=== PATIENT | female | born 1965 | race Caucasian/White ===

== ENCOUNTER → 2020-03-26 09:14 | Outpatient (BNVA) | payer MEDICAID, SELFPAY | PROVIDERS: PCP Nurse Practitioner Family; Referring Provider Nurse Practitioner Family; Visit Provider Physician Assistant | DX: Z76.89 Persons encountering health services in other specified circumstances (principal) ==

== ENCOUNTER 2020-05-01 08:37 | Outpatient (REF) | payer MEDICAID, SELFPAY | END 2020-05-01 08:38 | disposition home or self-care (01) | LOC: HO.LAB 08:37 | PROVIDERS: Visit Provider Internal Medicine | DX: Z20.822 Contact with and (suspected) exposure to COVID-19 (principal) | CPT/HCPCS: 36415; C9803; U0003 ==

== ENCOUNTER 2020-06-24 12:24 | Emergency (ER) | payer MEDICAID, SELFPAY ==
[2020-06-24 12:41] VITALS: BP 166/89; PULSE 64; RESP 20; TEMP 36.1; O2SAT 95; BMI 57.6
--- NOTE | 2020-06-24 13:50 | ED.WOUNDLAC ---
HPI - Wound/Laceration General Chief Complaint: Wound/Laceration Stated Complaint: LAC Time Seen by Provider: 06/24/20 13:45 Source: patient Mode of arrival: ambulatory Limitations: no limitations History of Present Illness HPI narrative: 55 y/o female presenting with small laceration to her right palm that she accidentally sustained today when she was cutting pork. She slipped with the knife and cut near the base of her right thumb. Bleeding is controlled. She has no numbness or tingling but she reports some pain. Onset (ago): hour(s) (2) Extremity Location: right: hand (palm near thenar eminence ) Place: home Patient tetanus UTD: No Context: accidental Associated symptoms: pain Treatments prior to arrival: bandage Related Data Previous Rx's Medication Instructions Recorded cephalexin 500 mg PO Q8H #15 cap 06/24/20 Allergies Allergy/AdvReac Type Severity Reaction Status Date / Time No Known Allergies Allergy Unverified 01/04/20 15:44 Review of Systems Review of Systems: Constitutional: No Fever, No Chills Musculoskeletal: No joint pain, No Myalgias Skin: + Skin Lesions, No rash Neuro: No Weakness, No Numbness Psych: + Anxiety Heme/Lymph: No Bruising PMFSH Past Medical History Attestation statement: The following information was validated with the patient. Medical History Arthritis Asthma HTN (hypertension) Social History Social History Smoked in Last 30 Days: No Use of substances other than those prescribed or required for medical reasons: No Advance Directives: No Advance Directives Information Provided: No Physical Exam Vital Signs: Vital Signs: Last Vital Signs Temp 96.9 F 06/24/20 12:41 Pulse 60 06/24/20 14:00 Resp 16 06/24/20 14:00 BP 154/78 H 06/24/20 14:00 Pulse Ox 96 06/24/20 14:00 Body Mass Index 57.6 Appearance: Alert. Oriented X3. No acute distress. HEENT: normal inspection CVS: Normal heart rate and rhythm. Pulses normal. Respiratory: No respiratory distress. Skin: Skin warm and dry. Normal skin color. Normal skin turgor. No rashes. Extremities: 2.5 cm superficial linear laceration to base of right thumb on the palm with exposed fat, no active bleeding. NV intact distally Neuro: Oriented X 3. No motor deficit. No sensory deficit. Course Course Course Narrative: 55 y/o female presenting with superficial laceration to right palm she sustained while cutting pork. Wound was extensively irrigated and cleaned. Sutures placed and patient tolerated well, see lac note. Tdap given. Will place on prophylactic keflex to prevent infection. Procedures Laceration Laceration 1: Site: hand Side (If applicable): right Size (cm): 2.5 Description: linear Depth: simple, single layer Local Anesthetic: lidocaine 2% Amount of anesthesia used (mL): 2 Pre-repair: irrigated extensively Skin layer closed with: nylon Size (cm): 4-0 Number of sutures: 4 Technique: simple, interrupted Critical Care Time Critical Care Time Critical Care Time: No Discharge Plan Discharge Clinical Impression: Laceration Patient Disposition: Home, Self-Care Instructions: Laceration (ED) Additional Instructions: Keep wound dry for next 24 hours. Do not get wet until tomorrow afternoon. At that time you may wash briefly with soap and water and then pat dry. Use bacitracin or triple antibiotic ointment two times per day. Keep covered and dry. Take Motrin or Tylenol as needed for pain. Take the prescribed antibiotic as directed to prevent infection. You will need the sutures removed in 10 days. Come back to the ER or see your doctor at that time. If you have any concerns of infection (redness, pain, drainage of pus) call your doctor or come back to the ER. Prescriptions: New cephalexin 500 mg capsule 500 mg PO Q8H Qty: 15 RF: 0 Interventions: ED Discharge Assessment Last Done: 06/24/20 14:34 Discharge Date/Time: 06/24/20 14:34
[2020-06-24] MEDS: Lidocaine HCl 2 % MPF 5 ML VIAL INFILTRATI (13:59)
[2020-06-24 14:00] VITALS: BP 154/78; PULSE 60; RESP 16; O2SAT 96
--- NOTE | 2020-06-24 14:08 | PC.NURSE ---
EVALUATED BY WESLEY ROMANO. PLAN IS TO PLACE SUTURES, MEDICATE WITH TETANUS VACCINE. PT AWARE AND AGREEABLE TO PLAN.
--- NOTE | 2020-06-24 14:09 | PC.NURSE ---
CMS TO RIGHT HAND WNL. +CMS NO FOUL ODOR OR DRAINAGE FROM WOUND
== END 2020-06-24 14:34 | disposition home or self-care (01) ==
PROVIDERS: Emergency Provider Emergency Medicine; PCP Nurse Practitioner Family
DX: S61.411A Laceration without foreign body of right hand, initial encounter (principal); W26.0XXA Contact with knife, initial encounter; I10 Essential (primary) hypertension; Y93.G1 Activity, food preparation and clean up; Y92.010 Kitchen of single-family (private) house as the place of occurrence of the external cause; Y99.9 Unspecified external cause status
CPT/HCPCS: 12001; 90471; 90715; 99284

== ENCOUNTER 2021-09-28 09:38 | Emergency (ER) | payer MEDICAID, SELFPAY ==
[2021-09-28 10:05] VITALS: BP 150/63; PULSE 58; RESP 20; TEMP 36.6; O2SAT 95; BMI 57.6
--- NOTE | 2021-09-28 10:33 | ED_ITS ---
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 Patient states that someone in her household tested positive for pinworms and now she would like treatment. Patient denies any rectal itching, dizziness, lightheadedness, abdominal pain, nausea, vomiting, fever, chills, blurry vision, double vision, loss of vision, chest pain, difficulty breathing, shortness of breath, back pain, night sweats, pain with urination, increased urinary frequency, increased urinary urgency, blood in her urine or stool, syncope or a near syncopal episode, recent trauma or falls, bowel incontinence, bladder incontinence, bowel retention, bladder retention, or any other complaints at this time. Relieving factors: none Exacerbating factors: none Associated symptoms: denies other symptoms Treatments prior to arrival: none Related Data Previous Rx's Medication Instructions Recorded cephalexin 500 mg capsule 500 mg PO Q8H #15 caps 06/24/20 albendazole 200 mg tablet 400 mg PO Q2W 2 doses #4 tabs 09/28/21 Allergies Allergy/AdvReac Type Severity Reaction Status Date / Time No Known Allergies Allergy Unverified 01/04/20 15:44 Review of Systems Constitutional: Constitutional: Reports no additional constitutional complaints, Denies chills, Denies fever(s) and Denies night sweats Eyes: Eyes: Reports no additional eye complaints, Denies blurry vision, Denies change in vision, Denies diplopia, Denies eye discharge, Denies loss of vision and Denies eye pain ENT: Denies dizziness Cardiovascular: Cardiovascular: Reports no additional cardiovascular complaints, Denies chest pain, Denies lightheadedness, Denies Loss of Consciousness and Denies dyspnea Respiratory: Respiratory: Reports no additional respiratory complaints and Denies dyspnea Gastrointestinal: Gastrointestinal: Reports no additional gastrointestinal complaints, Denies abdominal pain, Denies melena, Denies hematochezia, Denies change in bowel habits and Denies change in stool character Genitourinary: Genitourinary: Denies hematuria, Denies urinary frequency, Denies dysuria, Denies urinary incontinence, Denies urinary hesitancy and Denies urinary urgency Musculoskeletal: Musculoskeletal: Reports no additional musculoskeletal complaints, Denies numbness and Denies tingling Neurologic: Denies dizziness, Denies loss of vision, Denies numbness and Denies tingling Psychiatric: Psychiatric: Reports no additional psychiatric complaints Endocrine: Endocrine: Reports no additional endocrine complaints Hematologic/Lymphatic: Hematologic/Lymphatic: Reports no additional hematologic/lymphatic complaints Allergic/Immunologic: Allergic/Immunologic: Reports no additional allergic/immunologic complaints [facility] Past Medical History Attestation statement: The following information was validated with the patient. Source: old records reviewed Medical History Arthritis Asthma HTN (hypertension) Physical Exam ED Vital Signs: Vital Signs - 24 hr 09/28/21 10:05 Temperature 97.9 F Pulse Rate 58 Respiratory Rate 20 Blood Pressure 150/63 H Pulse Oximetry 95 Oxygen Delivery Method Room Air BMI result Body Mass Index 57.6 Const General: cooperative, no acute distress, alert and awake Nutritional Appearance: obese morbidly obese Orientation/consciousness: patient oriented x3 Limitations: no limitations HENMT Head: Yes normal to inspection and Yes atraumatic Ears: hearing grossly normal bilaterally and external ears normal General nose exam: Normal external nose present, no nasal discharge noted and no epistaxis Face and sinus: Yes normal facial exam, No abrasion and No laceration Mouth: Normal oral and palatal mucosa present, no drooling and no muffled voice Eyes General: appearance normal, both eyes and all related structures Periorbital: periorbital findings normal Eyelids: Yes eyelids normal Conjunctivae: conjunctivae normal Pupils: Equal, round and reactive pupils present EOM: EOMs intact bilaterally Neck Neck: Yes normal visual inspection, Yes full ROM and Yes no lymphadenopathy Chest Chest palpation & inspection: normal inspection of the chest Resp Effort & Inspection: normal respiratory effort and able to speak in complete sentences Auscultation: clear to auscultation bilaterally Cardio Rate: regular rate Rhythm: regular rhythm GI Inspection: Yes normal to inspection Neuro General: patient oriented x3 and moves all extremities Cranial nerves: Yes Equal, round and reactive pupils present Cognition (Neuro): normal cognition Motor exam (neuro): 5/5 motor strength present throughout Sensory Exam: Normal double simultaneous stimulation for sensation Coordination: [id number] test normal Extrem General: Yes normal to inspection, Yes full ROM and Yes capillary refill normal Psych Appearance: grossly normal Mental Status: mental status grossly normal Affect: normal affect Attitude: cooperative Thought process: Normal thought process present Thought content: Normal thought content present Insight: Good insight present (Psych) Medical Decision Making MDM Narrative Medical decision making narrative: Patient is a 56 year old female presenting to the emergency department today requesting treatment for pinworms. Patient's physical exam was unremarkable. Patient refused to perform paddle testing for pinworms. I explained my physical exam findings to the patient and the patient's son. I answered all questions asked by the patient and the patient's son. I stressed the importance of the patient taking her medication as prescribed. I stressed the importance of the patient following up with her primary care provider. I stressed the importance of the patient returning to the emergency department immediately if she were to develop any dizziness, shortness of breath, difficulty breathing, chest pain, blurry vision, loss of vision, nausea, vomiting, abdominal pain, fever, chills, back pain, or any other complaints. Patient and the patient's son verbalized agreement and understanding with this treatment plan and discharge. Differential Diagnosis Differential Diagnosis: pinworms, parasites, contact with parasitic individual Medical Records Medical records reviewed: Yes I reviewed the patient's medical records. Discharge Plan Discharge Clinical Impression: Pinworms Patient Disposition: Home, Self-Care Instructions: Pinworm Infection (ED) Additional Instructions: Follow up with your primary care provider. Return to the emergency department immediately if your symptoms worsen or if you develop any dizziness, shortness of breath, difficulty breathing, chest pain, blurry vision, loss of vision, nausea, vomiting, abdominal pain, fever, chills, back pain, or any other complaints. Prescriptions: New albendazole 200 mg tablet 400 mg PO Q2W Qty: 4 0RF Rx Instructions: must administer with food, preferably a high-fat meal No Action cephalexin 500 mg capsule 500 mg PO Q8H Qty: 15 0RF Referrals: [facility] [Primary Care Provider] - Print Language: Portuguese
== END 2021-09-28 11:46 | disposition home or self-care (01) ==
PROVIDERS: Emergency Provider Emergency Medicine
DX: B80 Enterobiasis (principal); I10 Essential (primary) hypertension; J45.909 Unspecified asthma, uncomplicated
CPT/HCPCS: 99283

== ENCOUNTER 2022-12-10 08:38 | Emergency (ER) | payer MEDICAID, SELFPAY ==
--- NOTE | ~2022-12-10 | XR_ITS ---
Examination: Lumbar spine, sacrum/coccyx and left hip. CLINICAL INDICATION: Pain. TECHNIQUE: Lumbar spine 3 views. Sacrum/coccyx 3 views. AP pelvis and left hip 3 views. COMPARISON: None. FINDINGS: Lumbar spine: There is normal lumbar lordosis. The vertebral heights, alignment is normal. There is pars defect at L4 vertebra with grade 1 anterolisthesis L4-L5. Rest of the vertebral alignment, all vertebral heights and disc heights are preserved. There is mild spondylosis of the elbow 2-3 Xarelto-4 and L4-L5 disc levels. No fracture or lytic process seen. Anterior abdominal hernia mesh is visualized from previous intervention. Sacrum/coccyx: The sacrum and and coccyx appears in alignment. No visible fracture or dislocation seen. The presacral and a post sacral soft tissues are normal. AP pelvis and left hip: There is normal symmetry of bilateral hip joints without any periarticular spurring. No fracture or lytic process seen. AP and frog-leg views left hip reveals no acute fracture or dislocation. XR/XR hip LT w [id number] IMPRESSION: 1. Grade 1 anterolisthesis L4 over L5 with pars defect at L4 vertebra. There is mild spondylosis. No acute fracture or lytic process seen. 2. Unremarkable sacrum and coccyx. 3. Unremarkable left hip and AP pelvis exam. No acute fracture or dislocation left hip. No lytic process seen in the left hip or the pelvis.
--- NOTE | ~2022-12-10 | XR_ITS ---
Examination: Lumbar spine, sacrum/coccyx and left hip. CLINICAL INDICATION: Pain. TECHNIQUE: Lumbar spine 3 views. Sacrum/coccyx 3 views. AP pelvis and left hip 3 views. COMPARISON: None. FINDINGS: Lumbar spine: There is normal lumbar lordosis. The vertebral heights, alignment is normal. There is pars defect at L4 vertebra with grade 1 anterolisthesis L4-L5. Rest of the vertebral alignment, all vertebral heights and disc heights are preserved. There is mild spondylosis of the elbow 2-3 Xarelto-4 and L4-L5 disc levels. No fracture or lytic process seen. Anterior abdominal hernia mesh is visualized from previous intervention. Sacrum/coccyx: The sacrum and and coccyx appears in alignment. No visible fracture or dislocation seen. The presacral and a post sacral soft tissues are normal. AP pelvis and left hip: There is normal symmetry of bilateral hip joints without any periarticular spurring. No fracture or lytic process seen. AP and frog-leg views left hip reveals no acute fracture or dislocation. XR/XR lumbar spine 2-3V IMPRESSION: 1. Grade 1 anterolisthesis L4 over L5 with pars defect at L4 vertebra. There is mild spondylosis. No acute fracture or lytic process seen. 2. Unremarkable sacrum and coccyx. 3. Unremarkable left hip and AP pelvis exam. No acute fracture or dislocation left hip. No lytic process seen in the left hip or the pelvis.
--- NOTE | ~2022-12-10 | XR_ITS ---
Examination: Lumbar spine, sacrum/coccyx and left hip. CLINICAL INDICATION: Pain. TECHNIQUE: Lumbar spine 3 views. Sacrum/coccyx 3 views. AP pelvis and left hip 3 views. COMPARISON: None. FINDINGS: Lumbar spine: There is normal lumbar lordosis. The vertebral heights, alignment is normal. There is pars defect at L4 vertebra with grade 1 anterolisthesis L4-L5. Rest of the vertebral alignment, all vertebral heights and disc heights are preserved. There is mild spondylosis of the elbow 2-3 Xarelto-4 and L4-L5 disc levels. No fracture or lytic process seen. Anterior abdominal hernia mesh is visualized from previous intervention. Sacrum/coccyx: The sacrum and and coccyx appears in alignment. No visible fracture or dislocation seen. The presacral and a post sacral soft tissues are normal. AP pelvis and left hip: There is normal symmetry of bilateral hip joints without any periarticular spurring. No fracture or lytic process seen. AP and frog-leg views left hip reveals no acute fracture or dislocation. XR/XR sacrum coccyx min 2V IMPRESSION: 1. Grade 1 anterolisthesis L4 over L5 with pars defect at L4 vertebra. There is mild spondylosis. No acute fracture or lytic process seen. 2. Unremarkable sacrum and coccyx. 3. Unremarkable left hip and AP pelvis exam. No acute fracture or dislocation left hip. No lytic process seen in the left hip or the pelvis.
[2022-12-10 08:54] VITALS: BP 140/72; PULSE 62; RESP 12; TEMP 36.9; O2SAT 100; BMI 57.6
[2022-12-10 09:50] VITALS: BP 168/87; PULSE 64; RESP 20; O2SAT 96
[2022-12-10] MEDS: Acetaminophen 325 MG TABLET 975 MG PO (10:03)
[2022-12-10 11:57] VITALS: BP 164/71; RESP 20; O2SAT 95
--- NOTE | 2022-12-10 12:04 | ED_ITS ---
HPI - Back Pain/Injury General Chief Complaint: Back Pain/Injury Stated Complaint: r side pain into back burning sensation Time Seen by Provider: 12/10/22 09:14 Source: patient and RN notes reviewed Mode of arrival: ambulatory Limitations: no limitations History of Present Illness HPI Narrative: This is a 57-year-old female, with history of arthritis, opioid use disorder on methadone, presenting to the emergency department for evaluation left low back pain x4 days. Patient reports that while she was getting up out of bed she suddenly felt left low back pain. Patient reports that since she has felt these symptoms her pain has only worsened. Patient denies any saddle anesthesia. Denies any urinary or bowel incontinence. Denies any dysuria, hematuria, urinary frequency or urgency. No numbness tingling or weakness into her lower extremities. Denies history of back pain. Denies chest pain, shortness of breath, abdominal pain, nausea, vomiting, or diarrhea. No other complaints or concerns at this time. MD elicited complaint: back pain Pertinent past history: recent trauma Timing: constant Severity: moderate Similar Symptoms Previously: No Quality: aching Location: lumbar spine and left lower back Radiation: none Exacerbating factors: movement Relieving factors: immobilization Associated symptoms: denies other symptoms Work related injury: No Related Data Previous Rx's Medication Instructions Recorded cephalexin 500 mg capsule 500 mg PO Q8H #15 caps 06/24/20 albendazole 200 mg tablet 400 mg PO Q2W 2 doses #4 tabs 09/28/21 acetaminophen 500 mg capsule 1,000 mg PO Q8H PRN pain #45 caps 12/10/22 Allergies Allergy/AdvReac Type Severity Reaction Status Date / Time No Known Allergies Allergy Unverified 01/04/20 15:44 Review of Systems Review of Systems: Yes all other systems are reviewed and are negative Constitutional: Constitutional: Reports as per HPI [facility] Past Medical History Medical History Arthritis Asthma HTN (hypertension) Social History Social History Smoked in Last 30 Days: No Use of substances other than those prescribed or required for medical reasons: No Advance Directives: No Advance Directives Information Provided: Yes Physical Exam Vital Signs: Vital Signs: Last Vital Signs Temp 98.4 F 12/10/22 08:54 Pulse 64 12/10/22 09:50 Resp 20 12/10/22 11:57 BP 164/71 H 12/10/22 11:57 Pulse Ox 95 12/10/22 11:57 O2 Del Method Room Air 12/10/22 11:57 BMI result Body Mass Index 57.6 Const: General: cooperative, comfortable and no acute distress Orientation/consciousness: patient oriented x3 Limitations: no limitations HEENT: Head: Yes normal to inspection, Yes normocephalic and Yes atraumatic Ears: hearing grossly normal bilaterally General nose exam: Normal external nose present Face and sinus: Yes normal facial exam Mouth: Normal oral and palatal mucosa present, oropharynx normal and moist mucous membranes Throat: Yes posterior oropharynx normal Eyes: General: appearance normal, both eyes and all related structures Eyelids: Yes eyelids normal Conjunctivae: conjunctivae normal Sclerae: sclerae normal Pupils: Equal, round and reactive pupils present EOM: EOMs intact bilaterally Neck: Neck: Yes normal visual inspection, Yes full ROM and Yes no lymphadenopathy Lymphatic: no lymphadenopathy noted Chest: Chest palpation & inspection: normal inspection of the chest Resp: Effort & Inspection: normal respiratory effort and able to speak in complete sentences Auscultation: clear to auscultation bilaterally, no crackles, no rales, no rhonchi and no wheezes Cardio: Rate: regular rate Rhythm: regular rhythm Heart sounds: S1 normal heart sound present and S2 normal heart sound present GI: Other: Abdomen is soft, nontender, nondistended. Inspection: Yes normal to inspection : General: Yes no CVA tenderness Back/Spine/Pelvis: Other: Left low back with no overlying or edema. There is tenderness to palpation along the left SI joint and left hip. Tenderness to palpation over the left lumbar musculature. Back: no CVA tenderness Cervical Spine: normal cervical lordosis Thoracic/Lumbar Spine: thoracic and lumbar spine normal to inspection Skin: General skin exam: no rashes or lesions noted Trauma: no lacerations or abrasions Wounds: no wounds Neuro: General: patient oriented x3 and moves all extremities Cranial nerves: Yes Equal, round and reactive pupils present Extrem: General: Yes normal to inspection Right upper extremity: normal to inspection Left upper extremity: normal to inspection Right lower extremity: normal to inspection Left lower extremity: normal to inspection Course Reevaluation(s) Reevaluation #1: X-rays reviewed as grade 1 anterolisthesis L4 over L5 with pars defect at L4 vertebra. No fracture or lytic process seen. Unremarkable sacrum and coccyx. Unremarkable left hip and AP pelvis exam. Discussed these results with patient. Advised to take Tylenol as directed as needed for pain. She declines prescription for lidocaine patch. Advised follow-up with primary care physician regarding this visit. Given return precautions if any new or worsening symptoms occur. Time: 12:09 Medications Administered Discontinued Medications Generic Name Dose Route Start Last Admin Trade Name Tuan PRN Reason Stop Dose Admin Acetaminophen 975 mg 12/10/22 09:58 12/10/22 10:03 Acetaminophen 325 Mg Tablet PO 12/10/22 09:59 975 mg ONCE ONE Administration Medical Decision Making Medical Decision Making MDM Narrative: This is a 57-year-old female presenting to the emergency department with complaints of left low back x 4 days. On arrival mildly hypertensive at 140/72, all other vital signs within normal limits. Patient is ambulatory with steady gait. On exam, patient has tenderness to palpation over the left lumbar musculature as well as left SI joint. This patient presents with back pain most consistent with lumbar spasm. Differential diagnoses includes lumbago versus musculoskeletal spasm / strain versus sciatica.No back pain red flags on history or physical. Presentation not consistent with malignancy (lack of history of m alignancy, lack of B symptoms), fracture (no trauma, no bony tenderness to palpation), cauda equina syndrome (no bowel or urinary incontinence/retention, no saddle anesthesia, no distal weakness), pyelonephritis (afebrile, no CVAT, no urinary symptoms). Given tenderness along the left SI joint, will obtain x-rays for further evaluation. Differential Diagnosis Differential Diagnoses: The differential diagnosis associated with the presentation includes See above Admission/Observation Consideration of admission/observation: Escalation of care including admission/observation considered Patient would have been admitted to the hospital had her work up had any findings where hospital admission was appropriate and her clinical presentation warranted hospital admission. Radiology Impression Discussion of test interpretation with radiology: I have reviewed the radiologist's reading. Radiologist Impression: Examination: Lumbar spine, sacrum/coccyx and left hip. CLINICAL INDICATION: Pain. TECHNIQUE: Lumbar spine 3 views. Sacrum/coccyx 3 views. AP pelvis and left hip 3 views. COMPARISON: None. FINDINGS: Lumbar spine: There is normal lumbar lordosis. The vertebral heights, alignment is normal. There is pars defect at L4 vertebra with grade 1 anterolisthesis L4-L5. Rest of the vertebral alignment, all vertebral heights and disc heights are preserved. There is mild spondylosis of the elbow 2-3 Xarelto-4 and L4-L5 disc levels.? No fracture or lytic process seen. Anterior abdominal hernia mesh is visualized from previous intervention. Sacrum/coccyx: The sacrum and and coccyx appears in alignment. No visible fracture or dislocation seen. The presacral and a post sacral soft tissues are normal. AP pelvis and left hip: There is normal symmetry of bilateral hip joints without any periarticular spurring. No fracture or lytic process seen. AP and frog-leg views left hip reveals no acute fracture or dislocation. XR/XR sacrum coccyx min 2V IMPRESSION: 1.? Grade 1 anterolisthesis L4 over L5 with pars defect at L4 vertebra. There is mild spondylosis. No acute fracture or lytic process seen. 2.? Unremarkable sacrum and coccyx. 3.? Unremarkable left hip and AP pelvis exam. No acute fracture or dislocation left hip. No lytic process seen in the left hip or the pelvis. ? Dictated By: Trey Holloway MD Tests considered The following testing was considered but not selected: Considered UA however patient is not having any urinary symptoms. Prescription Management I considered prescription management with: Pain Medication Chronic Conditions Patient?s care impacted by: Other (Opioid use disorder) Discharge Plan Discharge Clinical Impression: Low back pain, Muscle spasm, Anterolisthesis of lumbar spine Patient Disposition: Home, Self-Care Instructions: Acute Low Back Pain (ED), Spondylolisthesis (ED) Additional Instructions: Your x-rays showed grade 1 anterolisthesis, which is a slight slippage in your lumbar spine. This can cause pain. You also have muscle spasms noted to your back, please gently stretch, ice or apply heat, gentle massage for relief. Please follow-up with primary care physician regarding this visit. Any new or worsening symptoms occur to worsening pain, numbness tingling into her groin, or any urinary or bowel problems, please return for re-evaluation. Emi radiograf?as mostraron anterolistesis de memo 1, que es un ligero deslizamiento en la columna lumbar. Arthur puede causar dolor. Tambi?n tiene espasmos musculares en la espalda; estire suavemente, aplique hielo o calor y masajee suavemente para aliviarlo. Jeri un seguimiento con keene m?dico de atenci?n primaria con respecto a esta visita. Si se produce un s?ntoma nuevo o que empeora, un dolor que empeora, entumecimiento, hormigueo en la quynh o cualquier problema urinario o intestinal, regrese para viki reevaluaci?n. Prescriptions: New acetaminophen 500 mg capsule 1,000 mg PO Q8H PRN (Reason: pain) Qty: 45 0RF Rx Instructions: Do not use more than 4000mg in 24 hours. No Action cephalexin 500 mg capsule 500 mg PO Q8H Qty: 15 0RF albendazole 200 mg tablet 400 mg PO Q2W Qty: 4 0RF Rx Instructions: must administer with food, preferably a high-fat meal Interventions: ED Discharge Assessment Last Done: 12/10/22 12:44 Discharge Date/Time: 12/10/22 12:44
== END 2022-12-10 12:44 | disposition home or self-care (01) ==
PROVIDERS: Emergency Provider Emergency Medicine; PCP General Practice
DX: M54.50 Low back pain, unspecified (principal); M62.830 Muscle spasm of back; M43.16 Spondylolisthesis, lumbar region; I10 Essential (primary) hypertension; Z79.899 Other long term (current) drug therapy
CPT/HCPCS: 72100; 72220; 73502; 99283; 99284

== ENCOUNTER 2023-02-10 09:06 | Outpatient (REF) | payer MEDICAID, SELFPAY | END 2023-02-10 09:07 | disposition home or self-care (01) | LOC: HO.MAMMO 09:06 | PROVIDERS: Visit Provider General Practice | DX: Z12.31 Encounter for screening mammogram for malignant neoplasm of breast (principal) | CPT/HCPCS: 77063; 77067 ==

== ENCOUNTER → 2023-02-10 09:30 | Outpatient (BNV) | payer MEDICAID, SELFPAY | PROVIDERS: Visit Provider Radiology Diagnostic Radiology | DX: Z12.31 Encounter for screening mammogram for malignant neoplasm of breast (principal) | CPT/HCPCS: 77063; 77067 ==

== ENCOUNTER 2023-02-15 11:12 | Outpatient (REF) | payer MEDICAID, SELFPAY ==
[2023-02-15 12:15] LABS: Estimated Average Glucose 100 mg/dL; Hemoglobin A1c % 5.1 % (<6.0)
[2023-02-15 12:49] LABS: Alanine Aminotransferase 13 U/L (0-31); Albumin Level 3.8 g/dL (3.5-5.0); Alkaline Phosphatase 73 U/L (39-117); Anion Gap 15 (12-20); Aspartate Amino Transferase 13 U/L (5-31); Bilirubin Total 0.4 mg/dL (0.0-1.0); Blood Urea Nitrogen 13 mg/dL (9-16); Calcium 9.2 mg/dL (8.4-10.2); Carbon Dioxide 28 mmol/L (22-29); Chloride 103 mmol/L (96-108); Cholesterol 165 mg/dL (<200); Estimated Glomerular Filt Rate > 60; Glucose Random 85 mg/dL (60-115); HDL Cholesterol 57 mg/dL (>40); LDL Cholesterol Calculated 87 mg/dL (<100); Potassium 4.1 mmol/L (3.3-5.1); Sodium 142 mmol/L (135-145); Total Protein 7.7 g/dL (6.5-8.0); Triglycerides 108 mg/dL (<150)
[2023-02-15 13:08] LABS: HIV AB/AG Nonreactive (Nonreactive); HIV Num 1 0.04 S/CO (0.00-0.99); ~HepC Num1 13.73 S/CO (0.00-0.79); ~Hepatitis C Antibody Reactive (Nonreactive)
== END 2023-02-15 11:13 | disposition home or self-care (01) ==
LOC: HO.HHCL 11:12
PROVIDERS: Visit Provider General Practice
DX: Z00.01 Encounter for general adult medical examination with abnormal findings (principal); Z11.4 Encounter for screening for human immunodeficiency virus [HIV]
CPT/HCPCS: 36415; 80053; 80061; 83036; 86803; 87389

== ENCOUNTER 2024-05-18 09:58 | Outpatient (REF) | payer MEDICAID, SELFPAY ==
--- NOTE | ~2024-05-18 | XR_ITS ---
EXAMINATION: XR KNEE 3 VIEWS RIGHT HISTORY: R knee pain, prior operation, please check hardware COMPARISON: There are no prior studies available for comparison. FINDINGS: Five views of the right knee are submitted. Osseous mineralization is normal. There is no fracture or dislocation. There is severe osteoarthritis of the lateral and patellofemoral compartments with joint space narrowing and osteophyte formation. There is mild to moderate osteoarthritis of the medial compartment. There is a small joint effusion. XR/XR knee RT 3V IMPRESSION: Osteoarthritis of the right knee as described. Electronically signed by: Xavier Sanches MD 05/18/2024 12:24 PM BEV
--- OUTSIDE RECORDS SUMMARY | 2024-05-18 13:05 | XMS_ITS | Encounter Summary ---
Author Organization [employer] Address [address] [place] [address] Care Team Providers Care Director Of It Operations Name Role Phone Autumn Grant MD Primary Care Provider [phone] Reason for Visit * Reason Onset Date Comments Med Refill 02/18/2023 Encounter Details Date Type Department Care Team ([facility] st Contact Info) Description 02/18/2023 Telephone [facility] MED[facility]INE [address] [place], [place] [phone] uAtumn Grant MD [address] [place], [place] [phone] Med Refill Social History Tobacco Use Types Packs/Day Years Used Date Smoking Tobacco: Never Smokeless Tobacco: Never Depression Answer Date Recorded Patient Health Questionnaire-9 Score 13 01/20/2023 Housing Stability Answer Date Recorded What is your housing situation today? I have raphael paz 02/04/[address] you li ve. Do you have problems with any of the following? None of the above 02/04/2023 Food Insecurity Answer Date Recorded Within the past 12 months, y ou worried that your food would run out before you got money to buy more: Never True 02/04/2023 Within the past 12 months,th e food you bought just didn't last and you didn't have enough money to get more: Never True Transportation Answer Date Recorded In the past 12 months, has l ack of transportation kept you from medical appts, meetings, work or from getting things needed for daily living? No 02/04/2023 Utilities Answer Date Recorded In the past 12 months, has t he electric, gas, oil or water company threatened to shut off services in your home? No 02/04/2023 Depression Answer Date Recorded Patient Health Questionnaire-2 Score 6 01/20/2023 Comments Unknown Sex and Gender Information Value Date Recorded Sex Assigned at Female 02/16/2022 10:14 AM EDT Legal Sex Female 10:14 AM EDT Gender Identity Female 02/16/2022 10:14 AM EDT Sexual Orientation Choose not to disclose 2021 10:14 AM EDT documented as of this encounter Miscellaneous Notes * Telephone Encounter - Soni Sosa LPN - 02/18/2023 1:38 PM EDT Medication was sent to [facility] #[id number] on 01/14/23 #90 with 1 refill. * Telephone Encounter - Klaus Tucker - 02/18/2023 1:34 PM EDT Tc from patient requesting medication refill for cholecalciferol (Vitamin D-3) 50 MCG (1999 UT) capsule. documented in this encounter Plan of Treatment Upcoming Encounters Date Type Department Care Team (Late st Contact Info) Description 07/07/2024 9:30 AM EDT Procedure Visit [facility] MED[facility]INE [address] [place] [address] Autumn Grant MD [address] [place] [address] documented as of this encounter Visit Diagnoses Not on filedocumented in this encounter Additional Health Concerns Assessment Noted Time PHQ-9 Depression Total Score: 13 023 10:14 AM EDT documented as of this encounter Care Teams Director Of It Operations Relationship Specialty Start Date End Date Autumn Grant MD [address] [place] [address] PCP - General Family Medicine 05/29/20 documented as of this encounter
--- OUTSIDE RECORDS SUMMARY | 2024-05-18 13:06 | XMS_ITS | Encounter Summary ---
Author Organization [employer] [facility] Address [address] 7t [place] [address] Care Team Providers Care Retort Pre Cooker Name Role Phone Autumn Grant MD Primary Care Provider [phone] Encounter Details Date Type Department Care Team (Late st Contact Info) Description 12/23/2022 Orders Only [facility] MEDICINE [address] [place] [address] [phone] ProviderNara MD Social History Tobacco Use Types Packs/Day Years Used Date Smoking Tobacco: Never Smokeless Tobacco: Never Comments Unknown Sex and Gender Information Value Date Recorded Sex Assigned at Female 02/16/2022 10:14 AM EDT Legal Sex Female 10:14 AM EDT Gender Identity Female 02/16/2022 10:14 AM EDT Sexual Orientation Choose not to disclose 2021 10:14 AM EDT documented as of this encounter Plan of Treatment Upcoming Encounters Date Type Department Care Team (Late st Contact Info) Description 07/07/2024 9:30 AM EDT Procedure Visit [facility]INE [address] [place] [address] [phone] Autumn Grant MD [address] [place] [phone] documented as of this encounter Procedures Procedure Name Priority Date/Time Associated Diagnosis Comments HIV ANTIBODY/ANTIGEN (JUAN GANDHI) Routine 02/15/2023 11:20 AM EDT HM COLONOSCOPY Routine 05/13/2017 documented in this encounter Results * HIV Ab/Ag (JUAN BULLOCK) (02/15/2023 11:20 AM EDT) HIV AB/AG Nonreactive Nonreactive [facility] Comment:HIV-1 p24 Ag and/or HIV-1/HIV-2 Ab not detected.A test result that is nonreactive does not exclude thepossibility of exposure to or infection with HIV-1 and/orHIV-2. Nonreactive results in this assay for individualswith prior exposure to HIV-1 and/or HIV-2 may be due toantigen and antibody levels that are below the limit ofdetection of this assay.The [employer] HIV Ag/Ab Combo assay result andsupplemental assay results should be interpreted inconjunction with the patient's clinical presentation,history and other laboratory results. If the results areinconsistent with clinical evidence, additional testing issuggested to confirm the result. 02/15/2023 11:2 0 AM EDT 02/15/2023 11:54 AM EDT Autumn Grant MD LAB BLOOD ORDERABLES Final Res ult [facility] [address] [place] [phone] * Hm Colonoscopy (05/13/2017) us Historical Provider HEALTH MAINTENANCE Final Result documented in this encounter Visit Diagnoses Not on filedocumented in this encounter Care Teams Retort Pre Cooker Relationship Specialty Start Date End Date Autumn Grant MD [address] [place] [phone] PCP - General Family Medicine 05/29/20 documented as of this encounter
--- OUTSIDE RECORDS SUMMARY | 2024-05-18 13:06 | XMS_ITS | Encounter Summary ---
Author Organization [employer] Address [address] [place] [address] Care Team Providers Care Waste Baler Name Role Phone Autumn Grant MD Primary Care Provider [phone] Reason for Visit * Reason Onset Date Comments RS APPT 04/26/2024 Encounter Details Date Type Department Care Team ([facility] st Contact Info) Description 04/26/2024 Telephone [facility] MEDICINE [address] [place] [address] Emma Fuentes MA RS APPT Social History Tobacco Use Types Packs/Day Years Used Date Smoking Tobacco: Never Smokeless Tobacco: Never Alcohol Answer Date Recorded Frequency of Alcohol Consumption Not on file 07/16/2023 Average Number of Drinks Not on file 024 Frequency of Binge Drinking Not on file 06/18 Score 0 07/16/2023 Depression Answer Date Recorded Patient Health Questionnaire-9 Score 0 07/16/2023 Patient Health Questionnaire-9 Score 0 07/16/2023 Last PHQ-9: Questionnaire Data Not on file 0 07/16/2023 Housing Stability Answer Date Recorded What is [...] Answer Date Recorded Patient Health Questionnaire-2 Score 0 07/16/2023 Comments Unknown Sex and Gender Information Value Date Recorded Sex Assigned at Female 02/16/2022 10:14 AM EDT Legal Sex Female 10:14 AM EDT Gender Identity Female 02/16/2022 10:14 AM EDT Sexual Orientation Choose not to disclose 2021 10:14 AM EDT documented as of this encounter Miscellaneous Notes * Telephone Encounter - Emma Fuentes MA - 04/26/2024 9:08 AM EST T/C placed to pt to reschedule appt from 05/12/24 to 05/18/24 . Lvm for pt with date change will sendappt reminder as well documented in this encounter Plan of Treatment Upcoming Encounters Date Type Department Care Team (Late st Contact Info) Description 07/07/2024 9:30 AM EDT Procedure Visit [facility] MEDICINE [address] [place] [address] Autumn Grant MD [address] [place] [address] documented as of this encounter Visit Diagnoses Not on filedocumented in this encounter Additional Health Concerns Assessment Noted Time PHQ-9 Depression Total Score: 0 07/16/19 24 4:23 PM EDT documented as of this encounter Care Teams Waste Baler Relationship Specialty Start Date End Date Autumn Grant MD [address] [place] [phone] PCP - General Family Medicine 05/29/20 documented as of this encounter
--- OUTSIDE RECORDS SUMMARY | 2024-05-18 13:06 | XMS_ITS | Encounter Summary ---
Author Organization [employer] Address [address] [place] [address] Care Team Providers Care Lumber Planer Name Role Phone Autumn Grant MD Primary Care Provider [phone] Reason for Visit * Reason Comments Med Refill Encounter Details Date Type Department Care Team (Late st Contact Info) Description 03/30/2023 Refill [facility] MEDICINE [address] [place], [place] [phone] Soni Ritchie DO [address] [place], [place] [phone] Social History Tobacco Use Types Packs/Day Years [...] Description 07/07/2024 9:30 AM EDT Procedure Visit [facility]INE [address] [place] [address] Autumn Grant MD [address] [place] [address] documented as of this encounter Visit Diagnoses Not on filedocumented in this encounter Additional Health Concerns Assessment Noted Time PHQ-9 Depression Total Score: 13 023 10:14 AM EDT documented as of this encounter Care Teams Lumber Planer Relationship Specialty Start Date End Date Autumn Grant MD [address] [place] [address] PCP - General Family Medicine 05/29/20 documented as of this encounter
--- OUTSIDE RECORDS SUMMARY | 2024-05-18 13:06 | XMS_ITS | Encounter Summary ---
Author Organization [employer] Address [address] [place] [address] Care Team Providers Care Qualified Craft Worker Electrician Name Role Phone Autumn Grant MD Primary Care Provider [phone] Encounter Details Date Type Department Care Team (Late st Contact Info) Description 02/17/2023 Orders Only [facility] MEDICINE [address] [place], [place] [phone] Autumn Grant MD [address] [place], [place] [phone] Low back pain at multiple sites (Primary Dx) Social History Tobacco Use Types Packs/Day Years Used Date Smoking Tobacco: Never Smokeless Tobacco: Never Depression Answer Date Recorded Patient Health Questionnaire-9 Score 13 01/20/2023 Housing Stability Answer Date Recorded What is your housing situation today? I have raphaelmadison paz 02/04/[address] you [...] Description 07/07/2024 9:30 AM EDT Procedure Visit [facility] [address] [place] [address] Autumn Grant MD [address] [place] [address] documented as of this encounter Visit Diagnoses Diagnosis Low back pain at multiple sites- Primary documented in this encounter Additional Health Concerns Assessment Noted Time PHQ-9 Depression Total Score: 13 023 10:14 AM EDT documented as of this encounter Care Teams Qualified Craft Worker Electrician Relationship Specialty Start Date End Date Autumn Grant MD [address] [place] [address] PCP - General Family Medicine 05/29/20 documented as of this encounter
--- OUTSIDE RECORDS SUMMARY | 2024-05-18 13:06 | XMS_ITS | Encounter Summary ---
Author Organization [employer] Address [address] [place] [address] Care Team Providers Care Medicare Compliance Auditor Name Role Phone Autumn Grant MD Primary Care Provider [phone] Reason for Visit * Reason Comments Med Refill Encounter Details Date Type Department Care Team (Late st Contact Info) Description 03/30/2023 Refill [facility] [address] [place] [phone] Autumn Grant MD [address] [place], [place] [phone] Social History Tobacco Use Types Packs/Day Years [...] Description 07/07/2024 9:30 AM EDT Procedure Visit [facility] MED[facility]INE [address] [place] [address] Autumn Grant MD [address] [place] [address] documented as of this encounter Visit Diagnoses Not on filedocumented in this encounter Additional Health Concerns Assessment Noted Time PHQ-9 Depression Total Score: 13 023 10:14 AM EDT documented as of this encounter Care Teams Medicare Compliance Auditor Relationship Specialty Start Date End Date Autumn Grant MD [address] [place] [address] PCP - General Family Medicine 05/29/20 documented as of this encounter
--- OUTSIDE RECORDS SUMMARY | 2024-05-18 13:06 | XMS_ITS | Encounter Summary ---
Author Organization [employer] Address [address] [place] [address] Care Team Providers Care Assigner Name Role Phone Autumn Grant MD Primary Care Provider [phone] Reason for Visit * Reason Onset Date Comments Durable Medical Equipment 04/25/2024 L&C Fo rm: Disposable Underpad Encounter Details Date Type Department Care Team (Late st Contact Info) Description 04/25/2024 Telephone [facility] MEDICINE [address] [place], [place] [phone] Autumn Grant MD [address] [place], [place] [phone] Durable Medical Equipment (L&C Form: Disposable Underpad) Social History Tobacco Use Types Packs/Day Years [...] encounter Miscellaneous Notes * Telephone Encounter - Brandee Arzola MA - 04/26/2024 4:05 PM EST Received forms below signed by PCP and I fax them back to company and also sent to scan. * Telephone Encounter - Leyda Parker - 04/25/2024 12:27 PM EST Certificate or medical necessity for Disposable underpads/bedpads from [employer] received andis being processed. documented in this encounter Plan of Treatment Upcoming Encounters Date Type Department Care Team (Late st Contact Info) Description 07/07/2024 9:30 AM EDT Procedure Visit [facility] MEDICINE [address] [place] [address] Autumn Grant MD [address] [place] [phone] documented as of this encounter Visit Diagnoses Not on filedocumented in this encounter Additional Health Concerns Assessment Noted Time PHQ-9 Depression Total Score: 0 07/16/19 24 4:23 PM EDT documented as of this encounter Care Teams Assigner Relationship Specialty Start Date End Date Autumn Grant MD [address] [place] [address] PCP - General Family Medicine 05/29/20 documented as of this encounter
--- OUTSIDE RECORDS SUMMARY | 2024-05-18 13:06 | XMS_ITS | Clinical Summary ---
Author Organization [facility] Address [address] [place] [address] Care Team Providers Care Ladle Handler Name Role Phone Unavailable Primary Care Provider Unavailabl e Source Comments PLEASE NOTE, if this patient is a minor, it may be UNLAWFUL to discuss sensitive information that is contained in these records (such as FAMILY PLANNING, MENTAL HEALTH or SUBSTANCE ABUSE) with the minor patient's parent or other person without the patient's specific authorization.[facility] Immunizations Name Administration Dates Next Due Moderna COVID-19 Vaccine, re d cap blue label, 12+ Primary Series 08/14/2020,07/17/2020 Social History Tobacco Use Types Packs/Day Years Used Date Smoking Tobacco: Never Assessed Social Connections Answer Date Recorded Social Connections and Isolation 0 07/17/2020 Financial Resource Strain Answer Date R ecorded Financial Resource Strain 0 2020 Stress Answer Date Recorded Stress 0 07/17/2020 Physical Activity Answer Date Recorded Physical Activity 0 07/17/2020 Food Insecurity Answer Date Recorded Food 0 07/17/2020 Transportation Needs Answer Date Record ed Transportation 0 07/17/2020 Housing Stability Answer Date Recorded Housing 0 07/17/2020 Safety and Environment Answer Date Willie rded Safety 0 07/17/2020 Utilities Answer Date Recorded Utilities 0 07/17/2020 Employment Answer Date Recorded Employment 0 07/17/2020 Comments Unknown Sex and Gender Information Value Date Recorded Sex Assigned at Not on file Legal Sex Female 9:52 AM PDT Gender Identity Not on file Sexual Orientation Not on file Plan of Treatment Health Maintenance Due Date Last Done Comments Diabetes Screening 1965 HPV Screening 1965 Hepatitis C Screening 1965 Lipid Screening 1965 Pap + HPV 1965 Tobacco Screening 1965 HIV Screening 1980 Hypertension Screening (#1) 1983 Imm-Hepatitis B (1 of 3 - 19 + 3-dose series) 1984 Cervical Cancer Screening 1986 Pap Smear 1986 Breast Cancer Screening (Mammogram) 2005 CT Colonography 2010 Colonoscopy 2010 Colorectal Cancer Screening 2010 FIT/gFOBT 2010 Fecal DNA 2010 Flexible Sigmoidoscopy 2010 Imm-Zoster, Recombinant (1 of 2) 2015 Gpy-BNBGA-81 (3 - season) 2023 021, 07/17/2020 Imm-Influenza (#1) 2023 03/04/2015, 1 , 01/06/2010 Alcohol and Drug Screen 04/19/2024 Depression Annual Screen 04/19/2024 Imm-DTaP/Tdap/Td (3 - Td or Tdap) 06/24/2030 06/24/2020, 07/14/2013, 01/11/2008 Cervical Ablation/Cold-Knife Conization Discontinued Cervical Cryotherapy Discontinued Colposcopy Discontinued Endometrial Biopsy Discontinued Excision/Leep Discontinued HPV Genotyping Discontinued Vaginal Pap Discontinued Vulvoscopy Discontinued [address]
--- OUTSIDE RECORDS SUMMARY | 2024-05-18 13:06 | XMS_ITS | Clinical Summary ---
Author Organization [employer] Address [address] [address] [facility] [place] [address] Care Team Providers Care Software Deployment Engineer Name Role Phone Autumn Grant MD Primary Care Provider [phone] Allergies No known active allergies Medications FLUoxetine (PROzac) 40 MG capsule Take 40 mg by mouth in the morning. 3 Active methadone (Dolophine) 10 MG/ML solution Take 5 mL by mouth at bed time. Active sennosides (Senokot) 8.6 MG tablet take 1 - 2 Tablet by Oral route every evening as needed for constipation 180 tablet 3 Active Mometasone Furoate (Asmanex HFA) 100 MCG/ACT aerosol inhale 2 puff by inhalation route 2 times every day 13 g 5 4 Active albuterol (Ventolin HFA) 108 (90 Base) MCG/ACT inhalerIndicatio ns:Mild persistent asthma without complication Inhale 2 puffs by mouth 4 times a day as needed 18 g 3 4 Active Skin Protectants, Misc. (eucerin) cream Apply topically if needed for wound care. Apply to feet and then put on socks 99 g 11 4 025 Active lisinopril (Prinivil) 20 MG tablet Take 1 tablet (20 mg) by mouth in the morning. 90 tablet 3 4 025 Active oxybutynin XL (Ditropan-XL) 10 MG 24 hr tablet Take 1 tablet (10 mg) by mouth in the morning. 90 tablet 3 4 Active cholecalciferol 50 MCG (2000 UT) capsule TAKE 1 CAPSULE BY MOUTH ONCE DAILY 90 capsule 3 4 Active Acetaminophen 500 MG capsule Take 1 capsule (500 mg) by mouth every 6 (six) hours if needed for mild pain. 90 capsule 3 4 025 Active hydrOXYzine pamoate (Vistaril) 50 MG capsule Take 1 capsule (50 mg) by mouth every 12 (twelve) hours if needed for itching or anxiety. 90 capsule 3 4 Active ibuprofen 600 MG tablet TAKE 1 TABLET BY MOUTH THREE TIMES DAILY WITH FOOD NEEDED FOR PAIN OR FEVER 30 tablet 3 4 Active omeprazole (PriLOSEC) [address] capsule TAKE 1 CAPSULE(20 MG) BY MOUTH BEFORE BREAKFAST AND BEFORE THE EVENING MEAL. DO NOT CRUSH OR CHEW 180 capsule 3 4 Active ferrous sulfate 325 (65 Fe) MG EC tablet TAKE 1 TABLET(325 MG) BY MOUTH EVERY DAY. DO NOT CRUSH, CHEW, OR SPLIT 90 tablet 3 4 Active Acetaminophen Extra Strength 500 MG tablet TAKE 1 TABLET BY MOUTH EVERY 6 HOURS IF NEEDED FOR MILD PAIN 4 Active Urea 40 % lotion Apply 1 Application topically 2 times daily. TO FEET 325 mL 2 5 025 Active white petrolatum gel Apply topically if needed for dry skin (to feet 2-3 times a day). 500 g 3 5 Active Active Problems Problem Noted Date Diagnosed Date Bilateral carpal tunnel syndrome 05/18/2024 Assessment & Plan (05/18/2024 12:22 PM EST): Night splinting, braces ordered Encounter for routine adult physical exam with abnormal findings 02/17/2023 Encounter for screening mamm ogram for malignant neoplasm of breast 01/20/2023 Low back pain at multiple sites 01/20/2023 Overview (01/20/2023): Assessment & Plan (05/18/2024 12:21 PM EST): Offered chronic pain groups and acupuncture Assessment & Plan (02/17/2023 8:47 AM EDT): Walk with walker Cane and bedside commode have been ordered I will call Shun and see what Tylenol she has gotten in the past and re- order it Could also consider TCA in the future acupuncutre trial Assessment & Plan (01/20/2023 8:17 PM EDT): Patient? s clinical findings support the need for a cane given the patient has a mobility limitation that significantly impairs her ability to participate in one or more mobility-related activities of daily living (MRADL). Medical condition: low back pain; knee arthritis (Quadripod cane): Indications-> Hemiparesis Patient has capability and willingness to operate a cane safely, she needs to often use one upper extremity for weight-bearing. Mixed stress and urge urinary incontinence 01/20 Assessment & Plan (05/18/2024 12:24 PM EST): Has pullups, needs bedside commode, and wipes Assessment & Plan (01/20/2023 8:17 PM EDT): Has diapers already Needs bedside commode for further hygiene assistance Recurrent vaginitis 01/20/2023 Elbow joint pain 09/24/2017 Essential hypertension 05/30/2015 Assessment & Plan (07/19/2023 7:06 AM EDT): Take meds as prescribed Monitor at home, call if >140/90 three days in a row Lab Results Component Value Date CREATININE 0.77 02/15/2023 K 4.1 02/15/2023 asymptomatic Assessment & Plan (02/17/2023 8:41 AM EDT): Take meds as prescribed Monitor at home, call if >140/90 three days in a row Labs today asymptomatic Abnormal uterine bleeding 03/04/2015 Atopic conjunctivitis 03/04/2015 Atypical depressive disorder 03/04/2015 Assessment & Plan (07/19/2023 7:07 AM EDT): With anxiety and itching, skin scratching/picking Renewed Hydroxyzine to help with this Assessment & Plan (01/20/2023 8:20 PM EDT): Worse right now with family stress Gastroesophageal reflux disease without esophagi tis 03/04/2015 Moderate asthma 03/04/2015 Morbid obesity 03/04/2015 Assessment & Plan (05/18/2024 12:22 PM EST): Consider PA for Krunalro Opioid dependence 03/04/2015 Assessment & Plan (01/20/2023 8:20 PM EDT): In remission for 20 years, on methadone Secondary hyperparathyroidism 03/04/2015 Encounters Date Type Department Care Team Description 05/18/2024 9:30 AM EST Office Visit [address] [address] Autumn Grant MD Essential hypertension (Primary Dx); Chronic pain of right knee; Dietary counseling; Exercise counseling; Class 3 severe obesity with serious comorbidity and body mass index (BMI) of 50.0 to 59.9 in adult, unspecified obesity type (CMS/HCC); Secondary hyperparathyroidism (CMS/HCC); Opioid dependence in remission (CMS/HCC); Mild persistent asthma without complication; Low income; Moderate persistent asthma without complication; Mixed stress and urge urinary incontinence; Morbid obesity (CMS/HCC); Encounter for screening mammogram for malignant neoplasm of breast; Low back pain at multiple sites; Bilateral carpal tunnel syndrome; Recurrent vaginitis 05/18/2024 Travel 04/26/[address] [phone] Emma Fuentes MA RS APPT 04/25/[address] [phone] Autumn Grant MD Durable Medical Equipment (L&C Form: Disposable Underpad) 03/30/[address] [address] Autumn Grant MD Nurse Triage from Last 3 Months Immunizations Name Administration Dates Next Due Influenza injectable quadriv alent IIV4 with preservative 03/04/2015 Influenza, IIV3, injectable 01/06/2010 Influenza, Split (incl. purified surface antigen ) 01/25/2013 Pneumococcal Conjugate PCV 20 02/15/2023 Pneumococcal Polysaccharide PPSV23 06/21/2007 Pneumococcal, Unspecified 06/21/2007 TD (adult), 2 Lf tetanus tox oid, preservative free, adsorbed 01/11/2008 Tdap 06/24/2020,07/14/2013 Social History Tobacco Use Types Packs/Day Years Used Date Smoking Tobacco: Never Smokeless Tobacco: Never Tobacco Cessation:Counseling Given: Not Answered Alcohol Answer Date Recorded How often do you have a drink containing alcohol ? 0 05/18/2024 How many drinks containing a lcohol do you have on a typical day when you are drinking? 0 05/18/2024 How often do you have six or more drinks on one occasion? 0 05/18/2024 Depression Answer Date Recorded Patient Health Questionnaire-9 Score 5 05/18/2024 Patient Health Questionnaire-9 Score 5 05/18/2024 Last PHQ-9: Questionnaire Data Not on file 0 05/18/2024 Housing Stability Answer Date Recorded What is [...] to shut off services in your home? Yes 05/18/2024 Depression Answer Date Recorded Patient Health Questionnaire-2 Score 2 05/18/2024 Internet Access Answer Date Recorded Internet Access Q1 Yes 05/18/2024 Internet Access Q2 Not on file 05/18/2024 Comments Unknown Sex and Gender Information Value Date Recorded Sex Assigned at Female 02/16/2022 10:14 AM EDT Legal Sex Female 10:14 AM EDT Gender Identity Female 02/16/2022 10:14 AM EDT Sexual Orientation Choose not to disclose 2021 10:14 AM EDT Last Filed Vital Signs Vital Sign Reading Time Taken Comments Blood Pressure 122/81 05/18/2024 9:09 AM EST Pulse 56 05/18/2024 9:09 AM EST Temperature 37 ??C (98.6 ??F) 05/18/2024 9:09 AM EST Respiratory Rate 17 05/18/2024 9:09 AM EST Oxygen Saturation 96% 05/18/2024 9:09 AM EST Inhaled Oxygen Concentration - - Weight 140 kg (308 lb) 05/18/2024 9:09 AM EST Height 154.9 cm (5' 1 ) 05/18/2024 9:09 AM EST Body Mass Index 58.2 05/18/2024 9:09 AM EST Plan of Treatment Upcoming Encounters Date Type Department Care Team (Late st Contact Info) Description 07/07/2024 9:30 AM EDT Procedure Visit [facility] [address], [place] [phone] Autumn Grant MD [address] [place] [address] Health Maintenance Due Date Last Done Comments CT Colonography 1965 FIT DNA/Cologuard 1965 FIT 1965 FOBT 1965 Sigmoidoscopy 1965 Hepatitis B Vaccines (1 of 3 - 19+ 3-dose series) 1984 Zoster Vaccines (1 of 2) 2015 Colonoscopy 05/13/2020 05/13/2017 Colorectal Cancer Screening 05/13/2020 COVID-19 Vaccine (4 - 2023-2 5 season) 2023 06/10/2021, 08/14/2020, 07/17/2020 Influenza Vaccine (#1) 2023 5, 01/25/2013, 01/06/2010 Mammogram 02/11/2024 02/10/2023 Alcohol/Substance Use Screening 07/15/2024 07/16/2023 Depression Screening 05/18/2025 05/18/2024, 05/18/2024 SDOH Screening 05/18/2025 05/18/2024 Tobacco Screening 05/18/2025 05/18/2024 Cervical Cancer Screening 03/07/2026 HPV/Cotest 03/07/2026 03/07/2021 Pap Smear 03/07/2026 03/07/2021 Lipid Panel 02/16/2028 02/15/2023 DTaP/Tdap/Td Vaccines (3 - T d or Tdap) 06/24/2030 06/24/2020, 07/14/2013, 01/11/2008 RSV Patients and Patients Aged 60 years or older (1 - 1-dose 75+ series) 2040 HIV Screening Completed 02/15/2023 Hepatitis C Screening Completed 02/15/2023 Pneumococcal Vaccine: 50+ Years Completed 02/15/2023, 06/21/2007, 06/21/2007 HIB Vaccines Aged Out No longer eligi ble based on patient's age to complete this topic HPV Vaccines Aged Out No longer eligi ble based on patient's age to complete this topic Hepatitis A Vaccines Aged Out No long er eligible based on patient's age to complete this topic IPV Vaccines Aged Out No longer eligi ble based on patient's age to complete this topic Meningococcal Vaccine Aged Out No aixa hema eligible based on patient's age to complete this topic RSV under 20 months Aged Out No longe r eligible based on patient's age to complete this topic Rotavirus Vaccines Aged Out No longer eligible based on patient's age to complete this topic Procedures Procedure Name Priority Date/Time Associated Diagnosis Comments XR KNEE 3 VIEWS RIGHT Routine 05/18/2024 9:58 AM EST Chronic pain of right knee HEPATITIS C ANTIBODY Routine 02/15/2023 11:20 AM EDT Encounter for routine adult physical exam with abnormal findings HIV ANTIBODY/ANTIGEN ([place] DPH) Routine 02/15/2023 11:20 AM EDT LIPID PANEL, STANDARD Routine 02/15/2023 11:20 AM EDT Encounter for routine adult physical exam with abnormal findings BI MAMMOGRAM SCREENING TOMOSYNTHESIS BILATERAL Routine 02/10/2023 9:28 AM EDT HPV MRNA E6/E7 REFLEX TO HPV 16, 18/45 Routine 03/07/2021 12:00 AM EST THINPREP IMAGING SYSTEM PAP Routine 03/07/2021 12:00 AM EST HM COLONOSCOPY Routine 05/13/2017 from Last 3 Months or Most Recently Relevant to Health Maintenance Results * XR Knee 3 Views Right (05/18/2024 9:58 AM EST) Anatomical Region Laterality Modality Lower Extremities, Knee Right Radiogra phic Imaging 05/18/2024 9:58 AM EST Narrative 05/18/2024 12:29 PM EST ?[facility] ?[address] ?[place] [address] ?XRay Report ? Signed ? Patient: Avery,Rachelle ?MR#: [id number] ?? 86 ? : 1965 ?Acct:[id number] ? Age/Sex: 59 / F ?ADM Date: 05/18/24 ? Loc: HO.HHCX ? Attending Dr: Autumn Grant MD ? Ordering Physician: Autumn Grant ?? Date of Service: 05/18/24 ?? Procedure(s): XR knee RT 3V ?? Accession Number(s): [id number] ? cc: Autumn Grant ? EXAMINATION: ??XR KNEE 3 VIEWS RIGHT ? HISTORY: R knee pain, prior operation, please check hardware ? COMPARISON: There are no prior studies available for comparison. ? FINDINGS: ? Five views of the right knee are submitted. ??Osseous mineralization is ?? normal. ??There is no fracture or dislocation. ??There is severe ?? osteoarthritis of the lateral and patellofemoral compartments with ?? joint space narrowing and osteophyte formation. There is mild to ?? moderate osteoarthritis of the medial compartment. ??There is a small ?? joint effusion. ? XR/XR knee RT 3V ?? IMPRESSION: ? Osteoarthritis of the right knee as described. ? Electronically signed by: ??Xavier Sanches MD ??05/18/2024 12:24 PM EST ?? RP ? Dictated By: ?Xavier Sanches MD ? Signed By: ?<Electronically signed by Xavier Sanches MD in OV> ?05/18/24 1224 ? DD/ 0958 ? TD/TT: 05/18/24 1005 ? [employer] Consultant: ? Procedure Note Grabiel, Image - 05/18/2024 [facility] [address] [place] [address] XRay Report Signed Patient: Rachelle VarelaMR#: [id number] 86 : 1965Acct:[id number] Age/Sex: 59 / FADM Date: 05/18/24 Loc: HO.HHCX Attending Dr: Autumn Grant MD Ordering Physician: Autumn Grant Date of Service: 05/18/24 Procedure(s): XR knee RT 3V Accession Number(s): [id number] cc: Autmun Grant EXAMINATION: XR KNEE 3 VIEWS RIGHT HISTORY: R knee pain, prior operation, please check hardware COMPARISON: There are no prior studies available for comparison. FINDINGS: Five views of the right knee are submitted. Osseous mineralization is normal. There is no fracture or dislocation. There is severe osteoarthritis of the lateral and patellofemoral compartments with joint space narrowing and osteophyte formation. There is mild to moderate osteoarthritis of the medial compartment. There is a small joint effusion. XR/XR knee RT 3V IMPRESSION: Osteoarthritis of the right knee as described. Electronically signed by: Xavier Sanches MD 05/18/2024 12:24 PM [facility] Dictated By: Xavier Sanches MD Signed By: <Electronically signed by Xavier Sanches MD in OV> 05/18/24 1224 DD/ 0958 TD/TT: 05/18/24 1005 [employer] Consultant: Autumn Grant MD IMG XR PROCEDURES Final Result * (ABNORMAL) Hepatitis C Ab (02/15/2023 11:20 AM EDT) Hepatitis C Antibody Reactive( A) Nonreactive [facility] Comment:Presumptive evidence of antibodies to HCV. Blood Venous blood specimen / Unknown 02/15/2023 11:20 AM EDT 02/15/2023 11:54 AM EDT Autumn Grant MD LAB BLOOD ORDERABLES Final Res ult Performing Organization Address [facility]/ZIP Co de Phone Number [facility] [address] [place] [address] [phone] * HIV Ab/Ag ([facility]) (02/15/2023 11:20 AM EDT) HIV AB/AG Nonreactive Nonreactive [facility] Comment:HIV-1 p24 Ag and/or HIV-1/HIV-2 Ab not detected.A test result that is nonreactive does not exclude thepossibility of exposure to or infection with HIV-1 and/orHIV-2. Nonreactive results in this assay for individualswith prior exposure to HIV-1 and/or HIV-2 may be due toantigen and antibody levels that are below the limit ofdetection of this assay.The [facility] HIV Ag/Ab Combo assay result andsupplemental assay results should be interpreted inconjunction with the patient's clinical presentation,history and other laboratory results. If the results areinconsistent with clinical evidence, additional testing issuggested to confirm the result. 02/15/2023 11:2 0 AM EDT 02/15/2023 11:54 AM EDT us Autumn Grant MD LAB BLOOD ORDERABLES Final Res ult Performing Organization Address [facility]/ZIP Co de Phone Number [facility] [address] [place] [address] [phone] * Lipid Panel, Standard (02/15/2023 11:20 AM EDT) Triglycerides 108 <150 mg/dL [facility] Comment:Desirable Triglyceri de: less than 150 mg/dLBorderline High Triglyceride 150-199 mg/dLHigh Triglyceride: 200-499 mg/dLVery High Triglyceride: greater than or equal to 5OO mg/dL Cholesterol 165 <200 mg/dL [facility] Comment:Desirable Cholestero l: less than 200 mg/dLBorderline High Cholesterol: 200-239 mg/dLHigh Cholesterol: greater than 239 mg/dL LDL Cholesterol Calculated 87 <100 mg/dL [facility] Comment:Desirable LDL: less than 100 mg/dLNear Optimal/Above Optimal LDL: 110- 129 mg/dLBorderline High LDL: 130-159 mg/dLHigh LDL: 160-189 mg/dLVery High LDL: greater than or equal to 190 mg/dL HDL Cholesterol 57 >40 mg/dL [facility] Comment:Desirable HDL: great er than 40 mg/dL Note: This HDL assay may give artificially low results in patients with liver disease. Blood Venous blood specimen / Unknown 02/15/2023 11:20 AM EDT 02/15/2023 11:54 AM EDT Autumn Grant MD LAB BLOOD ORDERABLES Final Res ult [facility] [address] [place] [address] [phone] * BI Mammogram Screening Tomosynthesis Bilateral (02/10/2023 9:28 AM EDT) Anatomical Region Laterality Modality Breast Bilateral Mammography 02/10/2023 9:28 AM EDT Narrative 02/27/2023 1:42 PM EST ? [facility] [place] ? [address] ?[place] [address] ? Mammography Report ? Signed ? Patient: Avery,Rachelle ?MR#: [id number] ?? 86 ? : 1965 ?Acct:[id number] ? Age/Sex: 57 / F ?ADM Date: 10/25/23 ? Loc: HO.MAMMO ? Attending : Autumn Grant MD ? Ordering Physician: Autumn Grant ?Results: 1Negative ? Date of Service: 02/10/23 ?Follow Up: 1 Year From Orig ?? inal Mammogram ? Procedure(s): MM tomosynthesis screening BI ?? Accession Number(s): [id number] ? cc: Autumn Grant ? EXAMINATION: ?? MM SCREENING DIGITAL BREAST TOMOSYNTHESIS, BILATERAL ? CLINICAL INFORMATION: ? Screening. Asymptomatic. ? COMPARISON: ?? Mammography: This study is compared with prior exams dating back to ?? 2016. ? TECHNIQUE: ?? Digital breast tomosynthesis is performed in both the craniocaudal and ?? mediolateral oblique views along with computer-aided detection (CAD). ?? Synthesized 2D images are generated from the tomosynthesis. ? FINDINGS: ?? There are scattered areas of fibroglandular density (ACR BI-RADS breast ?? composition Category b). ? There are no significant masses, abnormal calcifications, or other ?? abnormalities. ? MM/MM tomosynthesis screening BI ?? IMPRESSION: ?? No mammographic evidence of malignancy. ? ASSESSMENT: ? BI-RADS BI-RADS 1 - Negative ? RECOMMENDATION: ?? Routine annual mammography screening. ? 1 year F/U ? This examination should not preclude the clinical evaluation of a ?? suspicious palpable abnormality. ? This patient's information was entered into a reminder system with a ?? target due date for their next mammogram. ? Dictated By: ?Seda Almanza MD ? Signed By: ?<Electronically signed by Seda Almanza MD in OV> ? 11/03/11 1339 ? DD/ 0928 ? TD/TT: ? [employer] Consultant: ? Procedure Note Donotuseinterpreter, Image - 02/27/2023 [facility] [address] [place], [place] [address] Mammography Report Signed Patient: Mala Varela#: [id number] 86 : 1965Acct:[id number] Age/Sex: 57 / FADM Date: 02/10/23 Loc: HO.MAMMO Attending Dr: Autumn Grant MD Ordering Physician: Aurelio Grantults: 1Negative Date of Service: 02/10/23Follow Up: 1 Year From Orig inal Mammogram Procedure(s): MM tomosynthesis screening BI Accession Number(s): [id number] cc: Autumn Grant EXAMINATION: MM SCREENING DIGITAL BREAST TOMOSYNTHESIS, BILATERAL CLINICAL INFORMATION: Screening. Asymptomatic. COMPARISON: Mammography: This study is compared with prior exams dating back to 2017. TECHNIQUE: Digital breast tomosynthesis is performed in both the craniocaudal and mediolateral oblique views along with computer-aided detection (CAD). Synthesized 2D images are generated from the tomosynthesis. FINDINGS: There are scattered areas of fibroglandular density (ACR BI-RADS breast composition Category b). There are no significant masses, abnormal calcifications, or other abnormalities. MM/MM tomosynthesis screening BI IMPRESSION: No mammographic evidence of malignancy. ASSESSMENT: BI-RADS BI-RADS 1 - Negative RECOMMENDATION: Routine annual mammography screening. 1 year F/U This examination should not preclude the clinical evaluation of a suspicious palpable abnormality. This patient's information was entered into a reminder system with a target due date for their next mammogram. Dictated By: Seda Almanza MD Signed By: <Electronically signed by Seda Almanza MD in OV> 02/27/23 1339 DD/ 7 TD/TT: [employer] Consultant: Autumn Grant MD IMG BI PROCEDURES Edited Resul t - Final * THINPREP TIS PAP (03/07/2021 12:00 AM EST) Clinical Information: None given [facility] COMMENT SEE COMMENT [facility] Comment: EXPLANATORY NOTE: ? The Pap is a screening test for cervical cancer. It is ?? not a diagnostic test and is subject to false negative ?? and false positive results. It is most reliable when a ?? satisfactory sample, regularly obtained, is submitted ?? with relevant clinical findings and history, and when ?? the Pap result is evaluated along with historic and ?? current clinical information. ?? COMMENT: This Pap test has been evaluated with computer assisted technology. [facility] Bid Analyst : SEE COMMENT [facility] Comment: BJ, CT(ASCP) CT screening location: [address] ??[id number] Interpretation/R esult: Negative for intraepithelial lesion or malignancy. [facility] LMP: NONE GIVEN [facility] Prev. BX: NONE GIVEN [facility] Prev. PAP: NONE GIVEN [facility] SOURCE: None given [facility] Statement Of Adequacy: SEE COMMENT [facility] Comment: Satisfactory for evaluation. Endocervical/transformation zone component present. 03/07/2021 Autumn Grant MD LAB PATHOLOGY ORDERABLES Final Result Performing Organization Address City/State/[facility] Co de Phone Number [facility] [address] * HPV mRNA E6/E7 REFLEX TO HPV 16, 18/45 (03/07/2021 12:00 AM EST) HPV nRNA E6/E7 Not Detected Not Detected [facility] Comment: Methodology: Rn Radiology-Mediated Amplification This assay detects E6/E7 viral messenger RNA (mRNA) from 14 high-risk HPV types (16,18,31,33,35,39,45,51,52,56,58,59,66,68). ? The analytical performance characteristics of this assay have been determined by [employer]. The modifications have not been cleared or approved by the FDA. This assay has been validated pursuant to the CLIA regulations and is used for clinical purposes. ?? For additional information, please refer to http://education.WeatherBug.OopsLab/faq/RYJ950r1 (This link if provided for information/ educational purposes only.) 03/07/2021 Autumn Grant MD LAB CYTOLOGY ORDERABLES Final Result [facility] [address] * Hm Colonoscopy (05/13/2017) us Historical Provider HEALTH MAINTENANCE Final Result from Last 3 Months or Most Recently Relevant to Health Maintenance [facility] Care Teams Software Deployment Engineer Relationship Specialty Start Date End Date Autumn Grant MD [address] [place] [phone] PCP - General Family Medicine 05/29/20
--- OUTSIDE RECORDS SUMMARY | 2024-05-18 13:06 | XMS_ITS | Encounter Summary ---
Author Organization [employer] Address [address] [facility] 7t [place] [address] Care Team Providers Care Bonsai Culturist Name Role Phone Autumn Grant MD Primary Care Provider [phone] Encounter Details Date Type Department Care Team (Late st Contact Info) Description 04/21/2023 Orders Only [facility] [address] [place], [place] [phone] Autumn Grant MD [address] [place], [place] [phone] Mixed stress and urge urinary incontinence (Primary Dx) Social History Tobacco Use Types [...] Description 07/07/2024 9:30 AM EDT Procedure Visit [facility] 230 [place] [address] Autumn Grant MD 230 [place] [address] documented as of this encounter Visit Diagnoses Diagnosis Mixed stress and urge urinary incontinence- Primary Mixed incontinence urge and stress (male)(female) documented in this encounter Additional Health Concerns Assessment Noted Time PHQ-9 Depression Total Score: 13 023 10:14 AM EDT documented as of this encounter Care Teams Bonsai Culturist Relationship Specialty Start Date End Date Autumn Grant MD 230 [place] [address] PCP - General Family Medicine 05/29/20 documented as of this encounter
--- OUTSIDE RECORDS SUMMARY | 2024-05-18 13:06 | XMS_ITS | Encounter Summary ---
Author Organization [employer] Address [address] [facility] 7t [place] [address] Care Team Providers Care Computational Theory Scientist Name Role Phone Autumn Grant MD Primary Care Provider [phone] Reason for Visit * Reason Onset Date Comments Med Refill 04/09/2023 Encounter Details Date Type Department Care Team ([facility] st Contact Info) Description 04/09/2023 Telephone [facility] 230 [place], [place] [phone] Autumn Grant MD [address] [place], [place] [phone] Med Refill Social History Tobacco Use Types [...] Telephone Encounter - Soni Sosa LPN - 04/09/2023 2:16 PM EST Medication was sent to [facility] #[id number] on 01/14/23 #90 with 1 refill. * Telephone Encounter - Klaus Tucker - 04/09/2023 2:07 PM EST TC from pt requesting medication refill. Medications needing refill : cholecalciferol (Vitamin D-3) 50 MCG (1999) capsule To be sent to: [facility] #[id number] AT [facility] documented in this encounter Plan of Treatment Upcoming Encounters Date Type Department Care Team ([facility] st Contact Info) Description 07/07/2024 9:30 AM EDT Procedure Visit [facility] 230 [place] [address] Autumn Grant MD [address] [place] [address] documented as of this encounter Visit Diagnoses Not on filedocumented in this encounter Additional Health Concerns Assessment Noted Time PHQ-9 Depression Total Score: 13 023 10:14 AM EDT documented as of this encounter Care Teams Computational Theory Scientist Relationship Specialty Start Date End Date Autumn Grant MD [address] [place] [address] PCP - General Family Medicine 05/29/20 documented as of this encounter
--- OUTSIDE RECORDS SUMMARY | 2024-05-18 13:06 | XMS_ITS | Encounter Summary ---
Author Organization [facility] Address [address] [facility] 7t [place] [address] Care Team Providers Care Roofing Apprentice Name Role Phone Autumn Grant MD Primary Care Provider [phone] Reason for Referral * Imaging (Routine) - Authorized Specialty Diagnoses / Procedures Referred By Contac t Referred To Contact Radiology Diagnoses Encounter for screening mammogram for malignant neoplasm of breast Procedures BI Mammogram Screening Tomosynthesis Bilateral Autumn Grant MD [address] [place] [address] Phone: tel: fax: [address] Phone: tel: fax: Referral ID Status Reason Start Date Expiration Date V isits Requested Visits Authorized [id number] Authorized 05/18/2024 05/18/2025 1 1 Reason for Visit * Reason Comments Follow-up Encounter Details Date Type Department Care Team (Latest Contact Info) Description 05/18/2024 9:30 AM EST Office Visit [facility] [address] [place] [phone] Autumn Grant MD 230 [place] [address] Essential hypertension (Primary Dx); Chronic pain of right knee; Dietary counseling; Exercise counseling; Class 3 severe obesity with serious comorbidity and body mass index (BMI) of 50.0 to 59.9 in adult, unspecified obesity type (CMS/HCC); Secondary hyperparathyroidism (CMS/HCC); Opioid dependence in remission ([facility]); Mild persistent asthma without complication; Low income; Moderate persistent asthma without complication; Mixed stress and urge urinary incontinence; Morbid obesity (CMS/[facility]); Encounter for screening mammogram for malignant neoplasm of breast; Low back pain at multiple sites; Bilateral carpal tunnel syndrome; Recurrent vaginitis Social History Tobacco Use Types Packs/Day Years [...] AM EDT documented as of this encounter Last Filed Vital Signs Vital Sign Reading [...] Mass Index 58.2 05/18/2024 9:09 AM EST documented in this encounter Miscellaneous Notes * Assessment & Plan Note - Autumn Grant MD - 05/18/2024 12:24 PM EST Associated Problem(s): Mixed stress and urge urinary incontinence Has pullups, needs bedside commode, and wipes * Assessment & Plan Note - Autumn Grant MD - 05/18/2024 12:22 PM EST Associated Problem(s): Bilateral carpal tunnel syndrome Night splinting, braces ordered * Assessment & Plan Note - Autumn Grant MD - 05/18/2024 12:22 PM EST Associated Problem(s): Morbid obesity (CMS/HCC) Consider MARLENI Chavez * Assessment & Plan Note - Autumn Grant MD - 05/18/2024 12:21 PM EST Associated Problem(s): Low back pain at multiple sites Offered chronic pain groups and acupuncture documented in this encounter Plan of Treatment Upcoming Encounters Date Type Department Care Team (Late st Contact Info) Description 07/07/2024 9:30 AM EDT Procedure Visit [facility] [address] [place] [address] Autumn Grant MD [address] [facility] [place] [address] Scheduled Orders Name Type Priority Associated Diagnoses Orde r Schedule BI Mammogram Screening Tomosynthesis Bilateral Imaging Routine Encounter for screening mammogram for malignant neoplasm of breast Expected: 05/18/2024, Expires: 07/16/2025 documented as of this encounter Procedures Procedure Name Priority Date/Time Associated Diagnosis Comments XR KNEE 3 VIEWS RIGHT Routine 05/18/2024 9:58 AM EST Chronic pain of right knee documented in this encounter Results * XR Knee 3 Views Right (05/18/2024 9:58 AM EST) Anatomical Region Laterality Modality Lower Extremities, Knee Right [facility] 05/18/2024 9:58 AM EST Narrative 05/18/2024 12:29 PM EST ?[facility] ?[address] ?[place] [address] ?XRay Report ? Signed ? Patient: Rachelle Varela ?MR#: [id number] ?? 86 ? : 1965 ?Acct:[id number] ? Age/Sex: 59 / F ?ADM Date: 05/18/ ? Loc: HO.HHCX ? Attending Dr: Autumn Grant MD ? Ordering Physician: Autumn Grant ?? Date of Service: 05/18/24 ?? Procedure(s): XR knee RT 3V ?? Accession Number(s): [id number] ? cc: Autumn Grant ? EXAMINATION: ??XR [...] ??Xavier Sanches MD ??05/18/2024 12:24 PM EST ? Dictated By: ?Xavier Sanches MD ? Signed By: ?<Electronically signed by Xavier Sanches MD in OV> ?05/18/24 1224 ? DD/ 0958 ? TD/TT: 05/18/24 1005 ? [employer]: ? Procedure Note Grabiel, Image - 05/18/2024 [place] [address] XRay Report Signed Patient: Mala Varela#: [id number] 86 : 1965Acct:[id number] Age/Sex: 59 / FADM Date: 05/18/24 Loc: HO.HHCX Attending Dr: Autumn Grant MD Ordering Physician: Autumn Grant Date of Service: 05/18/24 Procedure(s): XR knee RT 3V Accession Number(s): [id number] cc: Autumn Grant EXAMINATION: XR KNEE 3 VIEWS RIGHT [...] by: Xavier Sanches MD 05/18/2024 12:24 PM [facility] Dictated By: Xavier Sacnhes MD Signed By: <Electronically signed by Xavier Sanches MD in OV> 05/18/24 1224 DD/ 0958 TD/TT: 05/18/24 1005 [employer]: Autumn Grant MD IMG XR PROCEDURES Final Result documented in this encounter Visit Diagnoses Diagnosis Essential hypertension- Primary Unspecified essential hypertension Chronic pain of right knee Dietary counseling Dietary surveillance and counseling Exercise counseling Class 3 severe obesity with serious comorbidity and body mass index (BMI) of 50.0 to 59.9 in adult, unspecified obesity type (CMS/HCC) Secondary hyperparathyroidism (CMS/HCC) Secondary hyperparathyroidism (of renal origin) Opioid dependence in remission (CMS/HCC) Opioid type dependence, in remission Mild persistent asthma without complication Low income Inadequate material resources Moderate persistent asthma without complication Mixed stress and urge urinary incontinence Mixed incontinence urge and stress (male)(female) Morbid obesity (CMS/HCC) Morbid obesity Encounter for screening mammogram for malignant neoplasm of breast Low back pain at multiple sites Bilateral carpal tunnel syndrome Carpal tunnel syndrome Recurrent vaginitis Unspecified vaginitis and vulvovaginitis documented in this encounter Additional Health Concerns Assessment Noted Time PHQ-9 Depression Total Score: 5 05/18/19 25 9:11 AM EST documented as of this encounter Care Teams Roofing Apprentice Relationship Specialty Start Date End Date Autumn Grant MD [address] [place] [address] PCP - General Family Medicine 05/29/20 documented as of this encounter
--- OUTSIDE RECORDS SUMMARY | 2024-05-18 13:06 | XMS_ITS | Encounter Summary ---
Author Organization [employer] Address [address] 7[address] [place] [address] Care Team Providers Care Co Founder And Ceo Name Role Phone Autumn Grant MD Primary Care Provider Encounter Details Date Type Department Care Team (Latest Contact Info) Description 05/18/2024 Travel Social History Tobacco Use Types Packs/Day Years Used Date Smoking Tobacco: Never Smokeless Tobacco: Never Alcohol Answer Date Recorded How often do [...] Description 07/07/2024 9:30 AM EDT Procedure Visit [facility] 230 [place] [address] Autumn Grant MD 230 [place] [address] documented as of this encounter Visit Diagnoses Not on filedocumented in this encounter Additional Health Concerns Assessment Noted Time PHQ-9 Depression Total Score: 5 05/18/19 25 9:11 AM EST documented as of this encounter Care Teams Co Founder And Ceo Relationship Specialty Start Date End Date Autumn Grant MD [address] [place] [address] PCP - General Family Medicine 05/29/20 documented as of this encounter
== END 2024-05-18 09:59 | disposition home or self-care (01) ==
LOC: HO.HHCX 09:58
PROVIDERS: Visit Provider General Practice
DX: M25.561 Pain in right knee (principal); G89.29 Other chronic pain
CPT/HCPCS: 73562

== ENCOUNTER → 2024-05-18 09:58 | Outpatient (BNV) | payer MEDICAID, SELFPAY | PROVIDERS: Visit Provider Radiology Diagnostic Radiology | DX: M17.11 Unilateral primary osteoarthritis, right knee (principal) | CPT/HCPCS: 73562 ==

== ENCOUNTER 2024-11-28 10:56 | Outpatient (REF) | payer MEDICAID, SELFPAY ==
--- OUTSIDE RECORDS SUMMARY | 2024-11-28 12:04 | XMS_ITS | Encounter Summary ---
Author Organization [employer] Address [address] [facility] 7t [place] [address] Care Team Providers Care Color Paste Mixer Name Role Phone Autumn Grant MD Primary Care Provider [phone] Reason for Visit * Reason Onset Date Comments Med Refill 02/18/2023 Encounter Details Date Type Department Care Team ([facility] st Contact Info) Description 02/18/2023 Telephone [facility] 230 [place], [place] [phone] Autumn Grant MD 230 [place], [place] [phone] Med Refill Social History Tobacco Use Types [...] 1:38 PM EDT Medication was sent to [facility] #[id number] on 01/14/23 #90 with 1 refill. * Telephone Encounter - Klaus Tucker - 02/18/2023 1:34 PM EDT Tc from patient requesting medication refill for cholecalciferol (Vitamin D-3) 50 MCG (1999 UT) capsule. documented in this encounter Plan of Treatment Upcoming Encounters Date Type Department Care Team (Late st Contact Info) Description 12/08/2024 9:30 AM EDT Procedure Visit [facility] [address] [place] [address] Autumn Grant MD 230 [place] [address] documented as of this encounter Visit Diagnoses Not on filedocumented in this encounter Additional Health Concerns Assessment Noted Time PHQ-9 Depression Total Score: 13 023 10:14 AM EDT documented as of this encounter Care Teams Color Paste Mixer Relationship Specialty Start Date End Date Autumn Grant MD 230 [place] [address] PCP - General Family Medicine 05/29/20 documented as of this encounter
--- OUTSIDE RECORDS SUMMARY | 2024-11-28 12:04 | XMS_ITS | Clinical Summary ---
Author Organization [facility] Address [address] [place] [address] Care Team Providers Care Cone Trucker Name Role Phone Unavailable Primary Care Provider Unavailabl e Source Comments PLEASE NOTE, if this patient is a minor, it may be UNLAWFUL to discuss sensitive information that is contained in these records (such as FAMILY PLANNING, MENTAL HEALTH or SUBSTANCE ABUSE) with the minor patient's parent or other person without the patient's specific authorization.[facility] Immunizations Immunization Administration Dates Next Due Moderna COVID-19 Vaccine, [...] Health Maintenance Due Date Last Done Comments Anxiety Screening 1965 Diabetes Screening 1965 HPV Screening 1965 Hepatitis [...] 2010 Fecal DNA 2010 Flexible Sigmoidoscopy 2010 Imm-Pneumococcal 50+ (2 of 2 - PCV) 04/12/201506/20, 06/21/2007 Imm-Zoster, Recombinant (1 of 2) 2015 Cce-OAMYF-82 (3 - 2023- season) 2023 021, 07/17/2020 Alcohol and Drug Screen 04/19/2024 Depression Annual Screen 04/19/2024 Imm-Influenza (#1) 2024 03/04/2015, 1 , 01/06/2010 Imm-DTaP/Tdap/Td (3 - Td or Tdap) 06/24/2030 06/24/2020, 07/14/2013, 01/11/2008 Cervical Ablation/Cold-Knife Conization Discontinued Cervical Cryotherapy Discontinued Colposcopy Discontinued Endometrial Biopsy Discontinued Excision/Leep Discontinued HPV Genotyping Discontinued Vaginal Pap Discontinued Vulvoscopy Discontinued [address]
[2024-11-28 13:50] LABS: Hemoglobin A1C 118.5677 umol/L; Total Hemoglobin (HGBA1C) 3294.5357 umol/L
[2024-11-28 14:20] LABS: Alanine Aminotransferase 13 U/L (0-31); Albumin Level 4.1 g/dL (3.5-5.0); Alkaline Phosphatase 73 U/L (39-117); Anion Gap 12 (12-20); Aspartate Amino Transferase 29 U/L (5-31); Blood Urea Nitrogen 21 mg/dL (9-16); Calcium 8.7 mg/dL (8.4-10.2); Carbon Dioxide 30 mmol/L (22-29); Chloride 106 mmol/L (96-108); Cholesterol 169 mg/dL (<200); Estimated Glomerular Filt Rate > 60; HDL Cholesterol 54 mg/dL (>40); Potassium 4.1 mmol/L (3.3-5.1); Sodium 144 mmol/L (135-145); Total Protein 7.9 g/dL (6.5-8.0); Triglycerides 117 mg/dL (<150)
== END 2024-11-28 10:57 | disposition home or self-care (01) ==
LOC: HO.HHCL 10:56
PROVIDERS: PCP General Practice; Visit Provider General Practice
DX: E66.01 Morbid (severe) obesity due to excess calories (principal)
CPT/HCPCS: 36415; 80053; 80061; 83036; 84443

== ENCOUNTER 2025-01-30 10:11 | Outpatient (REF) | payer MEDICAID, SELFPAY ==
--- OUTSIDE RECORDS SUMMARY | 2025-01-30 11:51 | XMS_ITS | Encounter Summary ---
Author Organization [employer] Address [address] [facility] 7t [place] [address] Care Team Providers Care Foreign Law Consultant Name Role Phone Autumn Grant MD Primary Care Provider [phone] Reason for Visit * Reason Onset Date Comments Med Refill 04/09/2023 Encounter Details Date Type Department Care Team ([facility] st Contact Info) Description 04/09/2023 Telephone [facility] 230 [place], [place] [phone] Autumn Grant MD 230 [place], [place] [phone] Med Refill Social History Tobacco Use Types [...] 2:16 PM EST Medication was sent to [facility] #[id number] on 01/14/23 #90 with 1 refill. * Telephone Encounter - Klaus Tucker - 04/09/2023 2:07 PM EST TC from pt requesting medication refill. Medications needing refill : cholecalciferol (Vitamin D-3) 50 MCG (1999) capsule To be sent to: [facility] #[id number] [facility] documented in this encounter Plan of Treatment Upcoming Encounters Date Type Department Care Team ([facility] st Contact Info) Description 04/27/2025 10:00 AM EST Office Visit [facility] [address] [place] [address] JesusMar elizabeth, OD [address] [place] [address] documented as of this encounter Visit Diagnoses Not on filedocumented in this encounter Additional Health Concerns Assessment Noted Time PHQ-9 Depression Total Score: 13 023 10:14 AM EDT documented as of this encounter Care Teams Foreign Law Consultant Relationship Specialty Start Date End Date Autumn Grant MD [address] [place] [address] PCP - General Family Medicine 05/29/20 documented as of this encounter
--- OUTSIDE RECORDS SUMMARY | 2025-01-30 11:51 | XMS_ITS | Encounter Summary ---
Author Organization [employer] Address [address] [facility] 7t [place] [address] Care Team Providers Care Photographic Developer And Printer Name Role Phone Autumn Grant MD Primary Care Provider [phone] Reason for Visit * Reason Onset Date Comments Med Refill 02/18/2023 Encounter Details Date Type Department Care Team ([facility] st Contact Info) Description 02/18/2023 Telephone [facility] 230 [place], [place] [phone] Autumn Grant MD 230 [place], [place] [phone] Med Refill Social History Tobacco Use Types [...] PM EDT Medication was sent to [facility] #[id number] on 01/14/23 #90 with 1 refill. * Telephone Encounter - Klaus Tucker - 02/18/2023 1:34 PM EDT Tc from patient requesting medication refill for cholecalciferol (Vitamin D-3) 50 MCG (1999 UT) capsule. documented in this encounter Plan of Treatment Upcoming Encounters Date Type Department Care Team (Late st Contact Info) Description 04/27/2025 10:00 AM EST Office Visit [facility] [address] [place] [address] Mar Lee, OD [address] [place] [address] documented as of this encounter Visit Diagnoses Not on filedocumented in this encounter Additional Health Concerns Assessment Noted Time PHQ-9 Depression Total Score: 13 023 10:14 AM EDT documented as of this encounter Care Teams Photographic Developer And Printer Relationship Specialty Start Date End Date Autumn Grant MD 230 [place] [address] PCP - General Family Medicine 05/29/20 documented as of this encounter
--- OUTSIDE RECORDS SUMMARY | 2025-01-30 11:51 | XMS_ITS | Encounter Summary ---
Author Organization [employer] Address [address] [facility] 7t [place] [address] Care Team Providers Care Marble Machine Tender Name Role Phone Autumn Grant MD Primary Care Provider [phone] Encounter Details Date Type Department Care Team (Late st Contact Info) Description 12/23/2022 Orders Only [facility] 230 [place], [place] [phone] ProviderNara MD Social History Tobacco Use Types [...] Description 04/27/2025 10:00 AM EST Office Visit [facility] [address] [place], [place] [phone] Mar Lee, OD [address] [place] [address] documented as of this encounter Procedures Procedure Name Priority Date/Time Associated Diagnosis Comments HIV ANTIBODY/ANTIGEN ([place] [facility]) Routine 02/15/2023 11:20 AM EDT HM COLONOSCOPY Routine 05/13/2017 documented in this encounter Results * HIV Ab/Ag ([place] [facility]) (02/15/2023 11:20 AM EDT) HIV AB/AG Nonreactive Nonreactive [facility] Comment:HIV-1 p24 Ag and/or HIV-1/HIV-2 Ab not detected.A test result that is nonreactive does not exclude thepossibility of exposure to or infection with HIV-1 and/orHIV-2. Nonreactive results in this assay for individualswith prior exposure to HIV-1 and/or HIV-2 may be due toantigen and antibody levels that are below the limit ofdetection of this assay.The [employer] HIV Ag/Ab Combo assay result andsupplemental assay results should be interpreted inconjunction with the patient's clinical presentation,history and other laboratory results. If the results areinconsistent with clinical evidence, additional testing issuggested to confirm the result. 02/15/2023 11:2 0 AM EDT 02/15/2023 11:54 AM EDT Autumn Grant MD LAB BLOOD ORDERABLES Final Res ult [facility] [address] [place] [phone] * Hm Colonoscopy (05/13/2017) us Historical Provider HEALTH MAINTENANCE Final Result documented in this encounter Visit Diagnoses Not on filedocumented in this encounter Care Teams Marble Machine Tender Relationship Specialty Start Date End Date Autumn Grant MD [address] [place] [address] PCP - General Family Medicine 05/29/20 documented as of this encounter
--- OUTSIDE RECORDS SUMMARY | 2025-01-30 11:51 | XMS_ITS | Encounter Summary ---
Author Organization [employer] Address [address] [facility] [address] [place] [address] Care Team Providers Care Office Machines Teacher Name Role Phone Autumn Grant MD Primary Care Provider [phone] Reason for Visit * Reason Comments Med Refill Encounter Details Date Type Department Care Team (Late st Contact Info) Description 03/30/2023 Refill [facility] [address] [place] [phone] Autumn Grant MD 230 [place], [place] [phone] Social History Tobacco Use Types Packs/Day Years [...] Description 04/27/2025 10:00 AM EST Office Visit [facility] [address] [place] [address] Mar Lee, OD 230 [place] [address] documented as of this encounter Visit Diagnoses Not on filedocumented in this encounter Additional Health Concerns Assessment Noted Time PHQ-9 Depression Total Score: 13 023 10:14 AM EDT documented as of this encounter Care Teams Office Machines Teacher Relationship Specialty Start Date End Date Autumn Grant MD 230 [place] [address] PCP - General Family Medicine 05/29/20 documented as of this encounter
--- OUTSIDE RECORDS SUMMARY | 2025-01-30 11:51 | XMS_ITS | Encounter Summary ---
Author Organization [employer] Address 75 [facility] 7t [place] [address] Care Team Providers Care Artificial Stone Applicator Name Role Phone Autumn Grant MD Primary Care Provider [phone] Reason for Visit * Reason Comments Med Refill Encounter Details Date Type Department Care Team (Late st Contact Info) Description 07/20/2024 Refill [facility] [address] [place], [place] [phone] Sara Landry MD 230 [place], [place] [phone] Social History Tobacco Use Types Packs/Day Years [...] Description 04/27/2025 10:00 AM EST Office Visit [facility] [address] [place] [address] Mar Lee, OD [address] [place] [address] documented as of this encounter Visit Diagnoses Not on filedocumented in this encounter Additional Health Concerns Assessment Noted Time PHQ-9 Depression Total Score: 5 05/18/19 25 9:11 AM EST documented as of this encounter Care Teams Artificial Stone Applicator Relationship Specialty Start Date End Date Autumn Grant MD [address] [place] [address] PCP - General Family Medicine 05/29/20 documented as of this encounter
--- OUTSIDE RECORDS SUMMARY | 2025-01-30 11:51 | XMS_ITS | Encounter Summary ---
Author Organization [employer] Address [address] [facility] [address] [place] [address] Care Team Providers Care Cabin Furnishings Installer Name Role Phone Autumn Grant MD Primary Care Provider Reason for Visit * Reason Onset Date Comments TERRITORY SALES MANAGER MEDICAL Services 09/15/2024 Encounter Details Date Type Department Care Team ([facility] st Contact Info) Description 09/15/2024 Telephone [facility]IC[facility] [address] [place], [place] [phone] Autumn Grant MD [address] [place], [place] [phone] TERRITORY SALES MANAGER MEDICAL Services Social History Tobacco Use Types Packs/Day Years [...] encounter Miscellaneous Notes * Telephone Encounter - Edmundo Vargas - 09/18/2024 11:48 AM EDT Tc from pt returning call regarding TERRITORY SALES MANAGER MEDICAL services. Patient stated need updated paperwork urgently, as they have a scheduled return date. Patient also reported that the paperwork previously received contained an outdated date and needs to be correctedwith a current one. [phone] * Telephone Encounter - Rickey Parker - 09/15/2024 4:14 PM EDT Tc from pt calling in regards to TERRITORY SALES MANAGER MEDICAL services stating [facility] advised to contact pcp and have them contact [employer]. Pt was transferred back from HIM stating they sent a document to the wrong place and further emphasized that [facility] advised her to have pcp contact [employer] regarding TERRITORY SALES MANAGER MEDICAL services. If any questions you can contact pt at [phone]. (Italian Speaker) documented in this encounter Plan of Treatment Upcoming Encounters Date Type Department Care Team (Late st Contact Info) Description 04/27/2025 10:00 AM EST Office Visit [facility] OPTOMETRY [address] [place] [address] Mar Lee, OD [address] [place] [address] documented as of this encounter Visit Diagnoses Not on filedocumented in this encounter Additional Health Concerns Assessment Noted Time PHQ-9 Depression Total Score: 5 05/18/19 25 9:11 AM EST documented as of this encounter Care Teams Cabin Furnishings Installer Relationship Specialty Start Date End Date Autumn Grant MD [address] [place] [address] PCP - General Family Medicine 05/29/20 documented as of this encounter
--- OUTSIDE RECORDS SUMMARY | 2025-01-30 11:51 | XMS_ITS | Encounter Summary ---
Author Organization [employer] Address [address] [facility] [address] [place] [address] Care Team Providers Care Heel Cutter Name Role Phone Autumn Grant MD Primary Care Provider [phone] Reason for Visit * Reason Comments Med Refill Encounter Details Date Type Department Care Team (Late st Contact Info) Description 07/20/2024 Refill [facility] MEDICINE [address] [place], [place] [phone] Autumn Grant MD [address] [place], [place] [phone] Social History Tobacco Use Types Packs/Day Years [...] 10:00 AM EST Office Visit [facility] OPTOMETRY [address] [place] [address] JesusMar elizabeth, OD [address] [place] [address] documented as of this encounter Visit Diagnoses Not on filedocumented in this encounter Additional Health Concerns Assessment Noted Time PHQ-9 Depression Total Score: 5 05/18/19 25 9:11 AM EST documented as of this encounter Care Teams Heel Cutter Relationship Specialty Start Date End Date Autumn Grant MD [address] [place] [address] PCP - General Family Medicine 05/29/20 documented as of this encounter
--- OUTSIDE RECORDS SUMMARY | 2025-01-30 11:51 | XMS_ITS | Encounter Summary ---
Author Organization [employer] Address [address] [facility] [address] [place] [address] Care Team Providers Care Sponge Diver Name Role Phone Autumn Grant MD Primary Care Provider [phone] Reason for Visit * Reason Onset Date Comments Appointment Request 09/19/2024 Encounter Details Date Type Department Care Team ([facility] st Contact Info) Description 09/19/2024 Telephone [facility] MEDICINE [address] [place] [address] Autumn Grant MD [address] [place], [place] [phone] Appointment Request Social History Tobacco Use Types Packs/Day Years [...] encounter Miscellaneous Notes * Telephone Encounter - Betty Naylor - 09/19/2024 1:12 PM EDT Tc from pt requesting r/s 07/07/2024 pap appointment with Rudy. documented in this encounter Plan of Treatment Upcoming Encounters Date Type Department Care Team (Late st Contact Info) Description 04/27/2025 10:00 AM EST Office Visit [facility] OPTOMETRY [address] [place], [place] [phone] Jesus, Mar, OD [address] [place] [address] documented as of this encounter Visit Diagnoses Not on filedocumented in this encounter Additional Health Concerns Assessment Noted Time PHQ-9 Depression Total Score: 5 05/18/19 25 9:11 AM EST documented as of this encounter Care Teams Sponge Diver Relationship Specialty Start Date End Date Autumn Grant MD [address] [place], [place] [phone] PCP - General Family Medicine 05/29/20 documented as of this encounter
--- OUTSIDE RECORDS SUMMARY | 2025-01-30 11:51 | XMS_ITS | Clinical Summary ---
Author Organization [facility] Address [address] [place] [address] Care Team Providers Care Anchor Operator Name Role Phone Unavailable Primary Care Provider [...] 06/21/2007 Imm-Zoster, Recombinant (1 of 2) 2015 Alcohol and Drug Screen 04/19/2024 Depression Annual Screen 04/19/2024 [id number] (2024- season) 2024 021, 07/17/2020 Imm-Influenza (#1) 2024 03/04/2015, 1 , 01/06/2010 Imm-DTaP/Tdap/Td (3 - Td or Tdap) 06/24/2030 06/24/2020, 07/14/2013, 01/11/2008 Cervical Ablation/Cold-Knife Conization Discontinued Cervical Cryotherapy Discontinued Colposcopy Discontinued Endometrial Biopsy Discontinued Excision/Leep Discontinued HPV Genotyping Discontinued Vaginal Pap Discontinued Vulvoscopy Discontinued [address]
--- OUTSIDE RECORDS SUMMARY | 2025-01-30 11:51 | XMS_ITS | Encounter Summary ---
Author Organization [employer] Address [address] [facility] [address] [place] [address] Care Team Providers Care Paper Folding Machine Operator Name Role Phone Autumn Grant MD Primary Care Provider [phone] Encounter Details Date Type Department Care Team ([facility] st Contact Info) Description 04/21/2023 Orders Only [facility] MEDICINE [address] [place], [place] [phone] Autumn Grant MD [address] [place], [place] [phone] Mixed stress and urge urinary incontinence (Primary [...] Description 04/27/2025 10:00 AM EST Office Visit [facility] OPTOMETRY [address] [place] [address] Mar Lee, OD [address] [place] [address] documented as of this encounter Visit Diagnoses Diagnosis Mixed stress and urge urinary incontinence- Primary Mixed incontinence urge and stress (male)(female) documented in this encounter Additional Health Concerns Assessment Noted Time PHQ-9 Depression Total Score: 13 023 10:14 AM EDT documented as of this encounter Care Teams Paper Folding Machine Operator Relationship Specialty Start Date End Date Autumn Grant MD [address] [place] [address] PCP - General Family Medicine 05/29/20 documented as of this encounter
--- OUTSIDE RECORDS SUMMARY | 2025-01-30 11:51 | XMS_ITS | Encounter Summary ---
Author Organization [employer] Address [address] [facility] [address] [place] [address] Care Team Providers Care Visual Arts Teacher Name Role Phone Autumn Grant MD Primary Care Provider [phone] Reason for Visit * Reason Comments Med Refill Encounter Details Date Type Department Care Team (Late st Contact Info) Description 03/30/[address] [facility] MEDICINE [address] [place], [place] [phone] Soni Ritchie DO [address] [place], [place] [phone] Social History Tobacco Use Types Packs/Day Years [...] AM EST Office Visit [facility] OPTOMETRY [address] [place] [address] Mar Lee, OD [address] [place] [address] documented as of this encounter Visit Diagnoses Not on filedocumented in this encounter Additional Health Concerns Assessment Noted Time PHQ-9 Depression Total Score: 13 023 10:14 AM EDT documented as of this encounter Care Teams Visual Arts Teacher Relationship Specialty Start Date End Date Autumn Grant MD [address] [place] [address] PCP - General Family Medicine 05/29/20 documented as of this encounter
--- OUTSIDE RECORDS SUMMARY | 2025-01-30 11:51 | XMS_ITS | Clinical Summary ---
Author Organization [employer] Address [address] [facility] 7t [place] [address] Care Team Providers Care County Library Director Name Role Phone Autumn Grant MD Primary Care Provider [phone] Allergies No known active allergies Medications methadone (Dolophine) 10 MG/ML solution Take 5 mL by mouth at bed time. Active sennosides (Senokot) 8.6 MG tablet take 1 - 2 Tablet by Oral route every evening as needed for constipation 180 tablet 3 Active cholecalciferol (Vitamin D-3) 50 MCG (2000 UT) capsule TAKE 1 CAPSULE BY MOUTH ONCE DAILY 90 capsule 3 5 Active Tirzepatide-Weig ht Management (Zepbound) 2.5 MG/0.5ML solution auto-injector Inject 0.5 mL (2.5 mg) under the skin 1 (one) time per week. 2 mL 3 5 Active Acetaminophen Extra Strength 500 MG tablet Take 1 tablet (500 mg) by mouth every 6 (six) hours if needed (pain). 60 tablet 11 5 Active albuterol (Ventolin HFA) 108 (90 Base) MCG/ACT inhalerIndicatio ns:Mild persistent asthma without complication INHALE 2 PUFFS BY MOUTH FOUR TIMES A DAY NEEDED 18 g 11 5 Active ferrous sulfate 325 (65 Fe) MG EC tablet Take 1 tablet (325 mg) by mouth with breakfast. Do not crush, chew, or split. 90 tablet 3 5 Active FLUoxetine (PROzac) 40 MG capsule Take 1 capsule (40 mg) by mouth Once per day. 90 capsule 3 5 Active hydrOXYzine pamoate (Vistaril) 50 MG capsule TAKE 1 TABLET BY MOUTH TWICE A DAY NEEDED FOR ITCHING OR ANXIETY 90 capsule 3 5 Active ibuprofen 600 MG tablet TAKE 1 TABLET BY MOUTH THREE TIMES DAILY WITH FOOD NEEDED FOR PAIN OR FEVER 30 tablet 3 5 Active lisinopril (Prinivil) 20 MG tablet TAKE 1 TABLET BY MOUTH EVERY MORNING 90 tablet 3 5 Active Mometasone Furoate (Asmanex HFA) 100 MCG/ACT aerosol INHALE 2 PUFFS BY MOUTH TWICE A DAY 13 g 5 Active omeprazole (PriLOSEC) [address] capsule Take 1 capsule (20 mg) by mouth before breakfast and before evening meal. Do not crush or chew. 180 capsule 3 5 Active oxybutynin XL (Ditropan-XL) 10 MG 24 hr tablet TAKE 1 TABLET BY MOUTH EVERY MORNING 90 tablet Active white petrolatum gel Apply topically if needed for dry skin (to feet 2-3 times a day). 500 g 3 5 Active Skin Protectants, Misc. (AmeriCerin) cream Apply 1 Application topically if needed for dry skin. APPLY TOPICALLY DAILY NEEDED FOR WOUND CARE. APPLY TO FEET AND THEN PUT SOCKS ON. 452 g 5 Active carboxymethylcel lulose (Refresh Plus) 0.5 % ophthalmic solution Administer 1 drop into both eyes if needed for dry eyes. 30 mL 2 5 Active Active Problems Problem Noted Date Diagnosed Date Bilateral carpal tunnel syndrome 05/18/2024 Assessment & Plan (05/18/2024 12:22 PM EST): Night splinting, braces ordered Encounter for routine adult physical exam with abnormal findings 02/17/2023 Encounter for screening mamm ogram for malignant neoplasm of breast 01/20/2023 Low back pain at multiple sites 01/20/2023 Overview (01/20/2023): Assessment & Plan (12/01/2024 1:40 PM EDT): For safety and falls avoidance Order hand-held shower and XL shower chair Assessment & Plan (05/18/2024 12:21 PM EST): Offered chronic pain groups and acupuncture Assessment & Plan (02/17/2023 8:47 AM EDT): Walk with walker Cane and bedside commode have been ordered I will call [facility] and see what Tylenol she has gotten in the past and re- order it Could also consider TCA in the future acupuncutre trial Assessment & Plan (01/20/2023 8:17 PM EDT): Patient s clinical findings support the need for [...] urge urinary incontinence 01/20 Assessment & Plan (12/01/2024 1:39 PM EDT): Please order disposable pads for bed, beside commode Assessment & Plan (05/18/2024 12:24 PM EST): Has pullups, needs bedside commode, and wipes Assessment & Plan (01/20/2023 8:17 PM EDT): Has diapers already Needs bedside commode for further hygiene assistance Recurrent vaginitis 01/20/2023 Elbow joint pain 09/24/2017 Essential hypertension 05/30/2015 Assessment & Plan (12/01/2024 1:39 PM EDT): Take meds as prescribed Monitor at home, call if >140/90 three days in a row Lab Results Component Value Date CREATININE 0.80 11/28/2024 K 4.1 11/28/2024 Assessment & Plan (07/19/2023 7:06 AM EDT): [...] tis 03/04/2015 Moderate asthma 03/04/2015 Morbid obesity (CMS/HCC) 03/04/2015 Assessment & Plan (12/01/2024 1:38 PM EDT): BMI 57 No weight loss with life style changes Patient interested in weight loss medication Reviewed indications for pharmacotherapy with patient - treatment for patient w/ obesity or a patient with a BMI > 27 w/ CV risk factors who have failed lifestyle modifications alone. are always prescribed in combination with ongoing lifestyle modification; and will be titrated up from the lowest dose. Discussed weight loss medication - Phentermine contraindicated to to history of RUPESH and active treatment for same; HTN. No contraindications identified: , POCT Urine Negative, no history of thyroid cancer or MEN Reviewed mechanism of action with patient. Discussed side effects with patient: GI upset Recommended to decrease soda and sugary beverage consumption. Recommended at least 20 g per meal of protein to assist with satiety. Recommended at least 150 min/week of moderate intensity exercise. Patient advised to stop medication if become Assessment & Plan (05/18/2024 12:22 PM EST): Consider PA for Mounjaro Opioid dependence 03/04/2015 Assessment & Plan (01/20/2023 8:20 PM EDT): In remission for 20 years, on methadone Secondary hyperparathyroidism 03/04/2015 Encounters Date Type Department Care Team Description 12/07/2024 Telephone [facility] [address] [place] [phone] Autumn Grant MD chart prep 12/01/[address] [address] Autumn Grant MD Durable Medical Equipment (DME Orders: Multiple Items); Prior Authorization ( PA: Chris) 11/28/2024 10:30 AM EDT Office Visit [address] [address] Autumn Grant MD Morbid obesity (CMS/HCC) (Primary Dx); Encounter for screening mammogram for malignant neoplasm of breast; Screening for colon cancer; Blurry vision; Mild persistent asthma without complication; Mixed stress and urge urinary incontinence; Essential hypertension; Low back pain at multiple sites 11/28/2024 Travel 11/17/2024 Patient Outreach [address] [address] Autumn Grant MD Pre-visit Planning (SDOH screening completed on 05/18/2024) from Last 3 Months Immunizations Immunization Administration Dates Next Due Influenza injectable quadriv [...] Sign Reading Time Taken Comments Blood Pressure 138/79 11/28/2024 10:25 AM EDT Pulse 63 11/28/2024 10:25 AM EDT Temperature 36.7 C (98 F) 11/28/2024 10:25 AM EDT Respiratory Rate 18 11/28/2024 10:25 AM EDT Oxygen Saturation 90% 11/28/2024 10:25 AM EDT Inhaled Oxygen Concentration - - Weight 139 kg (306 lb 9.6 oz) 11/28/2024 10:25 A M EDT Height 154.9 cm (5' 1 ) 11/28/2024 10:25 AM EDT Body Mass Index 57.93 11/28/2024 10:25 AM EDT Plan of Treatment Upcoming Encounters Date Type Department Care Team (Late st Contact Info) Description 04/27/2025 10:00 AM EST Office Visit [facility] [address] [place] [address] Jesus, Mar, OD [address] [place] [address] Health Maintenance Due Date Last Done Comments CT Colonography 1965 FIT DNA/Cologuard 1965 FIT 1965 FOBT 1965 Sigmoidoscopy 1965 Hepatitis B Vaccines (1 of 3 - 19+ 3-dose series) 1984 Zoster Vaccines (1 of 2) 2015 Colonoscopy 05/13/2020 05/13/2017 Colorectal Cancer Screening 05/13/2020 Mammogram 02/11/2024 02/10/2023 COVID-19 Vaccine ( - 2024-2 6 season) 2024 06/10/2021, 08/14/2020, 07/17/2020 Influenza Vaccine (#1) 2024 5, 01/25/2013, 01/06/2010 Alcohol/Substance Use Screening 05/18/2025 05/18/2024 Depression Screening 05/18/2025 05/18/2024, 05/18/2024 SDOH Screening 05/18/2025 05/18/2024 Disability Screening 11/28/2025 11/28/2024 Tobacco Screening 11/28/2025 11/28/2024 Cervical Cancer Screening 03/07/2026 HPV/Cotest 03/07/2026 03/07/2021 Pap Smear 03/07/2026 03/07/2021 Lipid Panel 11/28/2029 11/28/2024, 02/15/2023 DTaP/Tdap/Td Vaccines (3 - T d [...] patient's age to complete this topic Meningococcal B Vaccine Aged Out No l onger eligible based on patient's age to complete [...] Procedure Name Priority Date/Time Associated Diagnosis Comments HEMOGLOBIN A1C Routine 11/28/2024 11:00 AM EDT Morbid obesity (CMS/HCC) TSH W/REFLEX TO FT4 Routine 11/28/2024 1 1:00 AM EDT Morbid obesity (CMS/HCC) LIPID PANEL, STANDARD Routine 11/28/2024 11:00 AM EDT Morbid obesity (CMS/HCC) COMPREHENSIVE METABOLIC PANEL Routine 11/28/2024 11:00 AM EDT Morbid obesity (CMS/HCC) HEPATITIS C ANTIBODY Routine 02/15/2023 11:20 AM EDT Encounter for routine adult physical exam with abnormal findings HIV ANTIBODY/ANTIGEN ([place] DPH) Routine 02/15/2023 11:20 AM EDT BI MAMMOGRAM SCREENING TOMOSYNTHESIS BILATERAL Routine 02/10/2023 9:28 AM EDT HPV MRNA E6/E7 REFLEX TO HPV 16, 18/45 Routine 03/07/2021 12:00 AM EST THINPREP IMAGING SYSTEM PAP Routine 03/07/2021 12:00 AM EST HM COLONOSCOPY Routine 05/13/2017 from Last 3 Months or Most Recently Relevant to Health Maintenance Results * TSH W/Reflex to FT4 (11/28/2024 11:00 AM EDT) TSH reflex Free T4 1.55 0.32 - 4.0 uIU/mL [facility] Blood Venous blood specimen / Unknown 11/28/2024 11:00 AM EDT 11/28/2024 1:21 PM EDT Autumn Grant MD LAB BLOOD ORDERABLES Final Res ult Performing Organization Address [facility] de Phone Number [facility] [address] [place] [phone] * Hemoglobin A1c (11/28/2024 11:00 AM EDT) Hemoglobin A1c 5.4 <6.0 % [facility] Comment:Hemoglobin A1C Refer ence Range Adults: 4.8 - 6.0 % Non diabetic: < 6.0 % Goal: < 7.0 %Additional Action Suggested: > 8.0 %Note: Hemoglobin A1c results are invalid for patients with abnormal amounts of HbF. Blood transfusions may impact the HbA1c concentration in the patient sample. Estimated Average Glucose 108 mg/dL [facility] Comment:eAG = Estimated ave rage glucose which is %A1C expressed asaverage glucose, using the formula of the B3H-SlaukovVoolrep Glucose study (ADAG), Diabetes Care, Vol.31,#8,Nov. 2007 Blood Venous blood specimen / Unknown 11/28/2024 11:00 AM EDT 11/28/2024 1:21 PM EDT Autumn Grant MD LAB BLOOD ORDERABLES Final Res ult Performing Organization Address [facility] Co de Phone Number [facility] [address] [place] [phone] * Lipid Panel, Standard (11/28/2024 11:00 AM EDT) Triglycerides 117 <150 mg/dL [facility] Comment:Desirable Triglyceri de: less than 150 mg/dLBorderline High Triglyceride 150-199 mg/dLHigh Triglyceride: 200-499 mg/dLVery High Triglyceride: greater than or equal to 5OO mg/dL Cholesterol 169 <200 mg/dL [facility] Comment:Desirable Cholestero l: less than 200 mg/dLBorderline High Cholesterol: 200-239 mg/dLHigh Cholesterol: greater than 239 mg/dL LDL Cholesterol Calculated 92 <100 mg/dL [facility] Comment:Desirable LDL: less than 100 mg/dLNear Optimal/Above Optimal LDL: 110- 129 mg/dLBorderline High LDL: 130-159 mg/dLHigh LDL: 160-189 mg/dLVery High LDL: greater than or equal to 190 mg/dL HDL Cholesterol 54 >40 mg/dL [facility] Comment:Desirable HDL: great er than 40 mg/dL Note: This HDL assay may give artificially low results in patients with liver disease. Blood Venous blood specimen / Unknown 11/28/2024 11:00 AM EDT 11/28/2024 1:21 PM EDT us Autumn Grant MD LAB BLOOD ORDERABLES Final Res ult [facility] [address] [place] [phone] [phone] * (ABNORMAL) Comprehensive Metabolic Panel (11/28/2024 11:00 AM EDT) Sodium 144 135 - 145 mmol/L [facility] Potassium 4.1 3.3 - 5.1 mmol/L [facility] Chloride 106 96 - 108 mmol/L [facility] Carbon Dioxide 30(H) 22 - 29 mmol/L [facility] Anion Gap 12 12 - 20 [facility] Urea Nitrogen (BUN) 21(H) 9 - 16 mg/dL [facility] Creatinine, Serum 0.80 0.5 - 1.4 mg/dL [facility] Estimated Glomerular Filt Rate >60 [facility] Comment:Chronic Kidney Disea se: Estimated GFR < 60 mL/min/1.20x0Wwlleu Kidney Disease: Estimated GFR < 15 mL/min/1.73m2 Glucose 87 60 - 115 mg/dL [facility] Calcium 8.7 8.4 - 10.2 mg/dL [facility] Bilirubin, Total 0.4 0.0 - 1.0 mg/dL [facility] Aspartate Amino Transferase 29 5 - 31 U/L [facility] Alanine Aminotransferase 13 0 - 31 U/L [facility] Total Protein 7.9 6.5 - 8.0 g/dL [facility] Albumin Level 4.1 3.5 - 5.0 g/dL [facility] Alkaline Phosphatase 73 39 - 117 U/L [facility] Blood Venous blood specimen / Unknown 11/28/2024 11:00 AM EDT 11/28/2024 1:21 PM EDT Autumn Grant MD LAB BLOOD ORDERABLES Final Res ult Performing Organization Address [facility] Co de Phone Number [facility] [address] [place] [phone] * (ABNORMAL) Hepatitis C Ab (02/15/2023 11:20 AM EDT) Hepatitis C Antibody Reactive( A) Nonreactive [facility] Comment:Presumptive evidence of antibodies to HCV. Blood Venous blood specimen / Unknown 02/15/2023 11:20 AM EDT 02/15/2023 11:54 AM EDT Autumn Grant MD LAB BLOOD ORDERABLES Final Res ult Performing Organization Address [facility] Co de Phone Number [facility] [address] [place] [phone] [phone] * HIV Ab/Ag (JUAN BULLOCK) (02/15/2023 11:20 AM EDT) HIV AB/AG Nonreactive Nonreactive [facility] Comment:HIV-1 p24 Ag and/or HIV-1/HIV-2 Ab not detected.A test result that is nonreactive does not exclude thepossibility of exposure to or infection with HIV-1 and/orHIV-2. Nonreactive results in this assay for individualswith prior exposure to HIV-1 and/or HIV-2 may be due toantigen and antibody levels that are below the limit ofdetection of this assay.The [employer] HIV Ag/Ab Combo assay result andsupplemental assay results should be interpreted inconjunction with the patient's clinical presentation,history and other laboratory results. If the results areinconsistent with clinical evidence, additional testing issuggested to confirm the result. 02/15/2023 11:2 0 AM EDT 02/15/2023 11:54 AM EDT us Autumn Grant MD LAB BLOOD ORDERABLES Final Res ult [facility] [address] [place] [address] [phone] * BI Mammogram Screening Tomosynthesis Bilateral (02/10/2023 9:28 AM EDT) Anatomical Region Laterality Modality Breast Bilateral Mammography 02/10/2023 9:28 AM EDT Narrative 02/27/2023 1:42 PM EST [facility] [address] [place] [address] Mammography Report Signed Patient: Rachelle Varela MR#: [id number] [birth year] : 1965 Acct:[id number] Age/Sex: 57 / F ADM Date: 02/10/23 Loc: MAMMO Attending Dr: Autumn Grant MD Ordering Physician: Autumn Grant Results: 1Negative Date of Service: 02/10/23 Follow Up: 1 Year From Orig inal Mammogram Procedure(s): MM tomosynthesis screening BI Accession Number(s): [id number] cc: Autumn Grant EXAMINATION: MM SCREENING DIGITAL [...] Almanza MD in OV> 02/27/23 1339 DD/ 0928 TD/TT: Regional Maintenance Manager: Procedure Note Donotuseinterpreter, Image - 02/27/2023 [facility] [address] [place] [address] Mammography Report Signed Patient: Rachelle Varela#: [id number] 86 : 1965Acct:[id number] Age/Sex: 57 / FADM Date: 02/10/23 Loc: [facility] Attending Dr: Autumn Grant MD Ordering Physician: Aurelio Grantults: 1Negative Date of Service: 02/10/23Follow Up: 1 Year From Orig inal Mammogram Procedure(s): MM tomosynthesis screening BI Accession Number(s): [id number] cc: Autumn Grant EXAMINATION: MM SCREENING DIGITAL [...] in OV> 02/27/23 1339 DD/ 7 TD/TT: Regional Maintenance Manager: Autumn Grant MD IMG BI PROCEDURES Edited Resul t - Final * THINPREP TIS PAP (03/07/2021 12:00 AM EST) Clinical Information: None given [facility] COMMENT SEE COMMENT [facility] Comment: EXPLANATORY NOTE: The Pap is a screening test for cervical cancer. It is not a diagnostic test and is subject to false negative and false positive results. It is most reliable when a satisfactory sample, regularly obtained, is submitted with relevant clinical findings and history, and when the Pap result is evaluated along with historic and current clinical information. COMMENT: This Pap test has been evaluated with computer assisted technology. [employer] Boom Worker : SEE COMMENT [facility] Comment: BJ, CT(ASCP) CT screening location: [place] [address] Interpretation/R esult: Negative for intraepithelial lesion or malignancy. [facility] LMP: NONE [facility]IV[facility] Prev. BX: NONE [facility] Prev. PAP: NONE [facility]IV[facility] SOURCE: None given [facility] Statement Of Adequacy: SEE COMMENT [facility] Comment: Satisfactory for evaluation. Endocervical/transformation zone component present. 03/07/2021 Autumn Grant MD LAB PATHOLOGY ORDERABLES Final Result Performing Organization Address [facility] de Phone Number [facility] [address] * HPV mRNA E6/E7 REFLEX TO HPV 16, 18/45 (03/07/2021 12:00 AM EST) HPV nRNA E6/E7 Not Detected Not Detected [facility] Comment: Methodology: Pocket Machine Operator-Mediated Amplification This assay detects E6/E7 viral messenger RNA (mRNA) from 14 high-risk HPV types (16,18,31,33,35,39,45,51,52,56,58,59,66,68). The analytical performance characteristics of this assay have been determined by [employer]. The modifications have not been cleared or approved by the FDA. This assay has been validated pursuant to the CLIA regulations and is used for clinical purposes. For additional information, please refer to http://education.Nu3/faq/HRG891s8 (This link if provided for information/ educational purposes only.) 03/07/2021 Autumn Grant MD LAB CYTOLOGY ORDERABLES Final Result Performing Organization Address [facility] Phone Number [facility] [address] * Hm Colonoscopy (05/13/2017) Historical Provider HEALTH MAINTENANCE Final Result from Last 3 Months or Most Recently Relevant to [place] [id number] [place] C[employer] Care Teams County Library Director Relationship Specialty Start Date End Date Autumn Grant MD [address] [place] [phone] PCP - General Family Medicine 05/29/20
--- OUTSIDE RECORDS SUMMARY | 2025-01-30 11:51 | XMS_ITS | Encounter Summary ---
Author Organization [employer] Address [address] [facility] [address] [place] [address] Care Team Providers Care Charter Pilot Name Role Phone Autumn Grant MD Primary Care Provider [phone] Reason for Visit * Reason Comments Med Refill Encounter Details Date Type Department Care Team (Late st Contact Info) Description 07/21/2024 Refill [facility] [address] [place], [place] [phone] Autumn Grant MD [address] [place], [place] [phone] Social History Tobacco Use Types Packs/Day Years [...] Description 04/27/2025 10:00 AM EST Office Visit [facility] [address] [place] [address] JesusMar elizabeth, OD [address] [place] [address] documented as of this encounter Visit Diagnoses Not on filedocumented in this encounter Additional Health Concerns Assessment Noted Time PHQ-9 Depression Total Score: 5 05/18/19 25 9:11 AM EST documented as of this encounter Care Teams Charter Pilot Relationship Specialty Start Date End Date Autumn Grant MD [address] [place] [address] PCP - General Family Medicine 05/29/20 documented as of this encounter
--- OUTSIDE RECORDS SUMMARY | 2025-01-30 11:51 | XMS_ITS | Encounter Summary ---
Author Organization [employer] Address [address] [facility] [address] [place] [address] Care Team Providers Care Community Artist Name Role Phone Autumn Grant MD Primary Care Provider [phone] Encounter Details Date Type Department Care Team (Late st Contact Info) Description 02/17/2023 Orders Only [facility] [address] [place], [place] [phone] Autumn Grant MD [address] [place], [place] [phone] Low back pain at multiple sites (Primary [...] Description 04/27/2025 10:00 AM EST Office Visit [facility] [address] [place] [address] Mar Lee, OD [address] [place] [address] documented as of this encounter Visit Diagnoses Diagnosis Low back pain at multiple sites- Primary documented in this encounter Additional Health Concerns Assessment Noted Time PHQ-9 Depression Total Score: 13 023 10:14 AM EDT documented as of this encounter Care Teams Community Artist Relationship Specialty Start Date End Date Autumn Grant MD [address] [place] [address] PCP - General Family Medicine 05/29/20 documented as of this encounter
== END 2025-01-30 10:12 | disposition home or self-care (01) ==
LOC: HO.MAMMO 10:11
PROVIDERS: PCP General Practice; Visit Provider General Practice
DX: Z12.31 Encounter for screening mammogram for malignant neoplasm of breast (principal)
CPT/HCPCS: 77063; 77067

== ENCOUNTER → 2025-01-30 10:15 | Outpatient (BNV) | payer MEDICAID, SELFPAY | PROVIDERS: PCP General Practice; Visit Provider Radiology Body Imaging | DX: Z12.31 Encounter for screening mammogram for malignant neoplasm of breast (principal) | CPT/HCPCS: 77063; 77067 ==